=== PATIENT | male | born 1945 | race Caucasian/White ===

== ENCOUNTER 2017-01-28 17:33 | Outpatient (CLI) | payer MEDICARE, OTHER | END 2017-01-28 17:34 | disposition EMS.NT | DX: R26.89 Other abnormalities of gait and mobility (principal); W10.2XXA Fall (on)(from) incline, initial encounter; Y93.01 Activity, walking, marching and hiking; Y92.008 Other place in unspecified non-institutional (private) residence as the place of occurrence of the external cause ==

== ENCOUNTER 2017-02-06 14:20 | Emergency (ER) | payer MEDICARE, OTHER ==
[2017-02-06 14:52] VITALS: BP 115/76
[2017-02-06] MEDS ORDERED: IPRATROPIUM/ALBUTEROL 3 ML NEB INH STA (15:29)
[2017-02-06] MEDS ORDERED: DEXAMETHASONE 10 MG/ML VIAL PO STA (15:29)
--- NOTE | 2017-02-06 15:32 | ED Physician Documentation ---
PD HPI DYSPNEA - Stated complaint Stated Complaint: SOA - Chief complaint Chief Complaint: Resp - History obtained from History obtained from: Patient, Family - History of Present Illness Timing - onset: How many days ago (3-4) Timing - onset during: Rest Timing - duration: Days (3-4) Timing - details: Gradual onset, Still present Inciting event(s): URI Improved by: Rest Worsened by: Exertion, Coughing Associated symptoms: Cough, Wheezing Similar symptoms before: No diagnosis Recently seen: Not recently seen - Additional information Additional information: 71-year-old male with a history of alcoholism has developed some wheezing and a cough productive of some phlegm. He does have some drainage down the back of his throat and he has not used his nebulizer machine he has not been able to find the medication for his nebulizer machine. He is uncertain if he is ever used an inhaler. He states that he still is drinking 2 24 ounce beers per day. His indicates that heGets up at 4:30 in the morning goes to the store to get his beer. Review of Systems Constitutional: denies: Fever, Chills, Myalgias Eyes: denies: Decreased vision Ears: denies: Ear pain Nose: reports: Rhinorrhea / runny nose, Congestion Throat: denies: Sore throat Cardiac: denies: Chest pain / pressure, Palpitations Respiratory: reports: Dyspnea, Cough, Wheezing GI: denies: Abdominal Pain, Nausea, Vomiting : denies: Dysuria PD PAST MEDICAL HISTORY - Past Medical History Cardiovascular: Deep vein thrombosis Respiratory: None Neuro: None Endocrine/Autoimmune: None GI: None : None HEENT: None Psych: Anxiety Musculoskeletal: None, Other Derm: None - Past Surgical History Past Surgical History: Yes General: Appendectomy Ortho: Hip replacement, Other - Present Medications Home Medications: Ambulatory Orders Medication Instructions Recorded Confirmed Albuterol Sulf [Ventolin Hfa 1 - 2 puffs INH Q4HR PRN #1 inhaler 02/06/17 Inhaler] Azithromycin [Zithromax] 250 mg PO DAILY #6 tablet 02/06/17 Benzonatate [Tessalon] 100 - 200 mg PO TID PRN #20 capsule 02/06/17 - Allergies Allergies/Adverse Reactions: Allergies Allergy/AdvReac Type Severity Reaction Status Date / Time No Known Drug Allergies Allergy Verified 02/06/17 14:25 - Social History Does the pt smoke?: Yes Smoking Status: Current every day smoker Does the pt drink ETOH?: Yes Does the pt have substance abuse?: No - Immunizations Immunizations are current?: Yes - POLST Patient has POLST: No PD ED PE NORMAL - Vitals Vital signs reviewed: Yes (normal ) - General General: No acute distress, Well developed/nourished - HEENT HEENT: Atraumatic, PERRL, EOMI, Other (mild inflamation of the right TM and not the left. ) - Neck Neck: Supple, no meningeal sign, No bony TTP - Cardiac Cardiac: RRR, No murmur - Respiratory Respiratory: No respiratory distress, Other (scattered wheezes throughout with focal rhonchi in the left base. ) - Abdomen Abdomen: Soft, Non tender - Back Back: No CVA TTP, No spinal TTP - Derm Derm: Normal color, Warm and dry, No rash - Extremities Extremities: No deformity, No edema - Neuro Neuro: No motor deficit, No sensory deficit - Psych Psych: Normal mood, Normal affect Results - Vitals Vitals: Vital Signs - 24 hr 02/06/17 14:23 Temperature 36.4 C L Heart Rate 88 Respiratory 20 Rate Blood Pressure 115/76 O2 Saturation 92 Oxygen O2 Source Room air - Rads (name of study) 2 view chest Radiology: Prelim report reviewed (Impression: 1. No acute infiltrates.2. Flattened hemidiaphragms with diffuse interstitial prominence suggesting COPD.3. L1 compression fracture noted.), EMP read indepedently, See rad report PD MEDICAL DECISION MAKING - ED course Complexity details: reviewed old records, reviewed results, re-evaluated patient , considered differential, d/w patient, d/w family ED course: 71-year-old alcoholic male with a history of a recent URI has some reactive airway disease and here in the emergency department he is given some dexamethasone and a DuoNeb treatment with some improvement and he is taught the use of an inhaler. Chest x-ray is without evidence of infiltrate. He does appear to have a mild otitis on the right side. Departure - Departure Disposition: 01 Home, Self Care Clinical Impression: Mild chronic obstructive pulmonary disease Otitis media Qualifiers: Otitis media type: suppurative Laterality: right Chronicity: acute Recurrence: not specified as recurrent Spontaneous tympanic membrane rupture: without spontaneous rupture Qualified Code(s): H66.001 - Acute suppurative otitis media without spontaneous rupture of ear drum, right ear Instructions: ED COPD Flare, ED Otitis Media Acute Adult Follow-Up: Anna Quigley DO [Provider Admit Priv/Credential] - Prescriptions: Albuterol Sulf [Ventolin Hfa Inhaler] 1 - 2 puffs INH Q4HR PRN #1 inhaler PRN Reason: Shortness Of Air/Wheezing Benzonatate [Tessalon] 100 - 200 mg PO TID PRN #20 capsule PRN Reason: Cough Azithromycin [Zithromax] 250 mg PO DAILY #6 tablet
[2017-02-06] MEDS ORDERED: DEXAMETHASONE 10 MG/ML VIAL ONE (15:37)
--- NOTE | 2017-02-06 16:09 | XRAY Preliminary Report ---
Exam: XR Chest 2 View PA/LAT IMPRESSION: 1. No acute infiltrates. 2. Flattened hemidiaphragms with diffuse interstitial prominence suggesting COPD. 3. L1 compression fracture noted. [facility] SITE ID: [id number]
--- NOTE | 2017-02-06 16:12 | XRAY Report ---
EXAM: CHEST RADIOGRAPHY EXAM DATE: 02/06/2017 03:43 PM. CLINICAL HISTORY: Left base rhonchi and wheezing. COMPARISON: None. TECHNIQUE: 2 views. FINDINGS: Lungs/Pleura: Flattened hemidiaphragms with mild diffuse interstitial prominence. No focal opacities evident. No pleural effusion. No pneumothorax. Mediastinum: Heart and mediastinal contours are unremarkable. Other: L1 compression fracture noted. Advanced degenerative changes of the right shoulder evident. IMPRESSION: 1. No acute infiltrates. 2. Flattened hemidiaphragms with diffuse interstitial prominence suggesting COPD. 3. L1 compression fracture noted. [facility] Referring Provider Line: [phone] SITE ID: [id number]
[2017-02-06] MEDS ORDERED: IPRATROPIUM/ALBUTEROL 3 ML NEB INH ONE (16:13)
== END 2017-02-06 17:14 | disposition home or self-care (01) ==
LOC: ED 14:20
DX: J44.9 Chronic obstructive pulmonary disease, unspecified (principal); H66.001 Acute suppurative otitis media without spontaneous rupture of ear drum, right ear; Z86.718 Personal history of other venous thrombosis and embolism; F17.200 Nicotine dependence, unspecified, uncomplicated
CPT/HCPCS: 71020; 94640; 99282; 99283; J7620

== ENCOUNTER 2017-02-11 08:14 | Emergency (ER) | payer MEDICARE, OTHER ==
[2017-02-11 08:24] VITALS: BP 134/79
[2017-02-11 09:39] LABS: BILIRUBIN,URINE NEGATIVE (NEGATIVE); PH,URINE 5.5 PH (5.0-7.5)
[2017-02-11 09:43] LABS: UA CHARGE (STRIP ONLY) YES; UR CULTURE IF IND NOT INDICATED
--- NOTE | 2017-02-11 09:57 | ED Physician Documentation ---
History of Present Illness - Stated complaint Stated Complaint: MALE - Chief complaint Chief Complaint: General - Additonal information Additional information: hx from pt 71 male to ER with urinary freq X 3 d usualy urinated 3 X per night, now 5 X per night no change in fluids caffeine meds etc no fever chills abd pain flank pain pain dysuria or hematuria pt very impatient to leave, he is caregiver for with alzheimers Review of Systems Constitutional: denies: Fever, Chills GI: denies: Abdominal Pain : reports: Frequency. denies: Dysuria, Hematuria Musculoskeletal: denies: Back pain Immunocompromised: denies: Immunocompromised PD PAST MEDICAL HISTORY - Past Medical History Cardiovascular: Deep vein thrombosis Respiratory: None Neuro: None Endocrine/Autoimmune: None GI: None : None HEENT: None Psych: Anxiety Musculoskeletal: None, Other Derm: None - Past Surgical History Past Surgical History: Yes General: Appendectomy Ortho: Hip replacement, Other - Present Medications Home Medications: Ambulatory Orders Medication Instructions Recorded Confirmed Albuterol Sulf [Ventolin Hfa 1 - 2 puffs INH Q4HR PRN #1 inhaler 02/06/17 Inhaler] Azithromycin [Zithromax] 250 mg PO DAILY #6 tablet 02/06/17 Benzonatate [Tessalon] 100 - 200 mg PO TID PRN #20 capsule 02/06/17 - Allergies Allergies/Adverse Reactions: Allergies Allergy/AdvReac Type Severity Reaction Status Date / Time No Known Drug Allergies Allergy Verified 02/06/17 14:25 - Social History Does the pt smoke?: Yes Smoking Status: Current every day smoker Does the pt drink ETOH?: Yes Does the pt have substance abuse?: No - Immunizations Immunizations are current?: Yes - POLST Patient has POLST: No PD ED PE NORMAL - Vitals Vital signs reviewed: Yes - Cardiac Cardiac: RRR - Respiratory Respiratory: No respiratory distress - Abdomen Abdomen: Soft, Non tender - Back Back: No CVA TTP - Neuro Neuro: Alert and oriented X 3 Results - Vitals Vitals: Vital Signs - 24 hr 02/11/17 08:21 Temperature 36.9 C Heart Rate 88 Respiratory 16 Rate Blood Pressure 134/79 H O2 Saturation 98 Oxygen O2 Source Room air - Labs Labs: Laboratory Tests 02/11/17 09:05 Urine Color YELLOW Urine Clarity CLEAR Urine pH 5.5 Ur Specific [place] <=1.005 Urine Protein NEGATIVE Urine Glucose (UA) NEGATIVE Urine Ketones NEGATIVE Urine Occult Blood NEGATIVE Urine Nitrite NEGATIVE Urine Bilirubin NEGATIVE Urine Urobilinogen 0.2 (NORMAL) Ur Leukocyte Esterase NEGATIVE Ur Microscopic Review NOT INDICATED Urine Culture Comments NOT INDICATED Departure - Departure Disposition: 01 Home, Self Care Clinical Impression: Urinary frequency Condition: Good Follow-Up: Al Martinez MD [Physician No Access] - Comments: The urine test was fine. No infection, no blood, no glucose The problem may be an enlarged prostate and I suggest you follow up with a urologist
== END 2017-02-11 09:58 | disposition home or self-care (01) ==
LOC: ED 08:14
DX: R35.0 Frequency of micturition (principal); Z86.718 Personal history of other venous thrombosis and embolism; F17.200 Nicotine dependence, unspecified, uncomplicated
CPT/HCPCS: 81001; 81003; 87086; 99282; 99283

== ENCOUNTER 2017-02-27 08:59 | Outpatient (CLI) | payer MEDICARE, OTHER ==
--- NOTE | 2017-02-27 13:22 | DEXA Report ---
DEXA SCAN: 02/27/2017 CLINICAL INDICATION: Fracture. TECHNIQUE: Dual energy x-ray absorptiometry (DXA) was performed on a WOMN system. Regions measured are the AP spine, femoral neck, and, if needed, forearm. COMPARISON: None. In accordance with the International Society for Clinical Densitometry (ISCD) guidelines, data from previous exams may be reanalyzed using current recommendations and techniques. This is done to allow a more accurate basis for comparison with the current study. FINDINGS: The data for the lumbar spine is as follows: REGION BMD (g/cm/cm) T-SCORE Z-SCORE 1.388 2.1 4.0 L2 1.247 0.4 2.2 L3 1.477 2.3 4.1 L4 1.368 1.4 3.2 TOTAL 1.367 1.4 3.2 NOTE: All evaluable vertebrae are used for classification. The data for the hip is as follows: REGION BMD (g/cm/cm) T-SCORE Z-SCORE Neck 0.758 -2.0 -0.1 TOTAL 0.824 -1.5 0.3 NOTE: The femoral neck or total proximal femur, whichever is lowest, is used for classification. IMPRESSION: THE WHO CLASSIFICATION BASED ON THE INTERNATIONAL REFERENCE STANDARD IS OSTEOPENIA. THE FRACTURE RISK IS INCREASED. RECOMMENDATION: Patients with diagnosis of osteoporosis or osteopenia should have regular bone mineral density assessment. For those eligible for Medicare, routine testing is allowed once every 2 years. Testing frequency can be increased for patients who have rapidly progressing disease or for those who are receiving medical therapy to restore bone mass. COMMENT: World Health Organization (WHO) definitions for osteoporosis and osteopenia: NORMAL BMD: T-score at -1.0 or higher, fracture risk is low. OSTEOPENIA BMD: T-score between -1.0 and -2.5, fracture risk is increased. OSTEOPOROSIS BMD: T-score at -2.5 or lower, fracture risk high. National Osteoporosis Foundation recommends: 1. Obtain adequate dietary calcium (at least 1200 mg per day) and vitamin D (400 -800 international units per day). 2. Participate, as appropriate, in regular weightbearing and muscle- strengthening exercise. 3. Avoid tobacco use and reduce alcohol and caffeine intake. 4. For more detailed information see the website at www.NOF.org. MTDD
== END 2017-02-27 09:00 | disposition home or self-care (01) ==
LOC: DI 08:59
PROVIDERS: ATTEND Family Medicine
DX: S32.018A Other fracture of first lumbar vertebra, initial encounter for closed fracture (principal); M85.80 Other specified disorders of bone density and structure, unspecified site
CPT/HCPCS: 77080

== ENCOUNTER 2017-02-28 08:59 | Outpatient (CLI) | payer MEDICARE, OTHER ==
--- NOTE | 2017-02-28 15:56 | MRI Report ---
EXAM: MRI LUMBAR SPINE WITHOUT CONTRAST EXAM DATE: 02/28/2017 09:25 a.m. CLINICAL HISTORY: Patient fell months ago. Pain recently. COMPARISON: X-ray 02/20/2017. TECHNIQUE: Multiplanar, multisequence T1-weighted and fluid-sensitive sequences of the lumbar spine f rom T12 to S1 without contrast. Other: None. FINDINGS: Spinal Cord: The conus terminates at L1-L2. No signal abnormality in the visualized spinal cord. Alignment: There is flattening of the lumbar lordosis. Bone Marrow: Five [id number] lumbar vertebral bodies are assumed. There is a fracture of the sup erior and inferior endplates of L1 with marrow edema, and greater than 50% loss of vertebral body hei ght. The findings are consistent with a subacute fracture. There is mild retropulsion of fragments na rrowing the spinal canal by less than one-third of its normal anteroposterior diameter. Disk Levels/Facets: L1-L2: Mild facet joint osteoarthritis. Canal and foramina are normal. L2-L3: Unremarkable. L3-L4: Mild bilateral facet joint osteoarthritis. Canal and foramina are patent. L4-L5: Disk desiccation and loss of disk height. Broad-based posterior disk bulge with mild bilateral facet joint osteoarthritis causing mild canal narrowing. Mild bilateral foraminal narrowing. L5-S1: Mild bilateral facet joint osteophyte arthritis. Very small central disk protrusion. Mild bila teral foraminal narrowing. Osteophytes contact the left L5 nerve root within the neural foramen. Musculature: Normal. No edema or fatty atrophy. Other: The visualized pelvic cavity is unremarkable. IMPRESSION: 1. Mild spondylotic change. 2. Fracture of the body of L1 with greater than 50% loss of vertebral body height and moderate marrow edema suggestive of a subacute fracture. Retropulsed fragments cause mild canal narrowing 3. Mild degenerative change with mild foraminal narrowing at L4-L5 and L5-S1. The left L5 nerve root appears to be contacted by an osteophyte within the foramen. Comment: The following findings are so common in adults without low back pain that while we report th eir presence, they must be interpreted with caution and in the context of the clinical situation. (Re toby Zhang et al, Spine 2001) Prevalence of findings in patients without low back pain: Disk degeneration (any evidence): 92% Disk desiccation/T2 signal loss: 83% Disk height loss: 56% Disk bulge: 64% Disk protrusion: 32% Annular tear/high intensity zone: 38% [facility] Referring Provider Line: [phone] SITE ID: [id number]
== END 2017-02-28 09:00 | disposition home or self-care (01) ==
LOC: DI 08:59
PROVIDERS: ATTEND Family Medicine
DX: S32.018A Other fracture of first lumbar vertebra, initial encounter for closed fracture (principal); M51.37 Other intervertebral disc degeneration, lumbosacral region
CPT/HCPCS: 72148

== ENCOUNTER 2017-04-01 13:23 | Outpatient (CLI) | payer MEDICARE, OTHER ==
[2017-04-01 20:03] LABS: BASOPHILS # (AUTO) 0.2 10^3/uL (0.0-0.1); BASOPHILS % (AUTO) 2.8 %; EOSINOPHILS # (AUTO) 0.2 10^3/uL (0.0-0.7); EOSINOPHILS % (AUTO) 2.2 %; HCT - HEMATOCRIT 41.4 % (42.0-52.0); HGB - HEMOGLOBIN 14.2 g/dL (14.0-18.0); LYMPHOCYTES # (AUTO) 1.5 10^3/uL (1.5-3.5); LYMPHOCYTES % (AUTO) 20.5 %; MEAN CORPUSCULAR HEMOGLOBIN 32.6 pg (27.0-31.0); MEAN CORPUSCULAR HGB CONC 34.2 g/dL (32.0-36.0); MEAN CORPUSCULAR VOLUME 95.6 fL (80.0-94.0); MEAN PLATELET VOLUME 10.5 fL (7.4-11.4); MONOCYTES # (AUTO) 0.6 10^3/uL (0.0-1.0); MONOCYTES % (AUTO) 8.5 %; NEUTROPHILS # (AUTO) 4.9 10^3/uL (1.5-6.6); NUCLEATED RED BLOOD CELLS AUTO 0.3 /100WBC; RED BLOOD COUNT 4.34 10^6/uL (4.70-6.10); RED CELL DISTRIBUTION WIDTH 12.8 % (12.0-15.0); UNCORRECTED WHITE BLOOD COUNT 7.4 x10^3/uL; WHITE BLOOD COUNT 7.4 x10^3/uL (4.8-10.8)
[2017-04-01 20:18] LABS: ALBUMIN/GLOBULIN RATIO 1.1 (1.0-2.2); BUN - BLOOD UREA NITROGEN 20 mg/dL (6-20); CALCIUM 8.9 mg/dL (8.5-10.3); CARBON DIOXIDE - CO2 25 mmol/L (21-32); CHLORIDE 106 mmol/L (101-111); CHOL/HDL RATIO 4.3 (<5.0); CHOLESTEROL 129 mg/dL; GFR - MDRD 73 (>89); GLUCOSE 97 mg/dL (70-100); HDL CHOLESTEROL 30 mg/dL; LDL/HDL RATIO 2.5 (<3.6); POTASSIUM 4.3 mmol/L (3.5-5.0); SODIUM 137 mmol/L (135-145); TOTAL PROTEIN 6.8 g/dL (6.7-8.2); TRIGLYCERIDES 121 mg/dL; VLDL CHOLESTEROL 24 mg/dL
== END 2017-04-01 13:24 | disposition home or self-care (01) ==
LOC: LAB.WCP 13:23
PROVIDERS: ATTEND Family Medicine
DX: R74.8 Abnormal levels of other serum enzymes (principal); I73.9 Peripheral vascular disease, unspecified; M85.80 Other specified disorders of bone density and structure, unspecified site; I10 Essential (primary) hypertension
CPT/HCPCS: 36415; 80053; 80061; 85025

== ENCOUNTER 2018-03-24 11:45 | Outpatient (CLI) | payer MEDICARE, OTHER ==
[2018-03-24 18:44] LABS: HGB - HEMOGLOBIN 14.1 g/dL (14.0-18.0); MEAN CORPUSCULAR HEMOGLOBIN 33.5 pg (27.0-31.0); MEAN CORPUSCULAR HGB CONC 34.6 g/dL (32.0-36.0); MEAN CORPUSCULAR VOLUME 96.8 fL (80.0-94.0); MEAN PLATELET VOLUME 9.5 fL (7.4-11.4); RED BLOOD COUNT 4.21 10^6/uL (4.70-6.10); RED CELL DISTRIBUTION WIDTH 12.9 % (12.0-15.0); WHITE BLOOD COUNT 6.4 x10^3/uL (4.8-10.8)
[2018-03-24 19:05] LABS: CRP - C-REACTIVE PROTEIN 1.6 mg/dL (0-1.0); URIC ACID 6.2 mg/dL (2.6-7.2)
[2018-03-24 19:29] LABS: RHEUMATOID FACTOR POSITIVE (Negative)
== END 2018-03-24 11:46 | disposition home or self-care (01) ==
LOC: LAB.WCP 11:45
PROVIDERS: ATTEND Family Medicine
DX: M79.642 Pain in left hand (principal); M79.641 Pain in right hand
CPT/HCPCS: 36415; 84550; 85027; 85651; 86140; 86200; 86430

== ENCOUNTER 2018-03-24 13:07 | Outpatient (CLI) | payer MEDICARE, OTHER ==
--- NOTE | 2018-03-24 16:29 | XRAY Report ---
Reason: HAND PAIN,LEFT, HAND PAIN,RIGHT Procedure Date: 03/24/2018 Accession Number: [id number] / [id number] Procedure: XR - Hand 3 View BILAT CPT Code: FULL RESULT: EXAMS: 1. Right Hand Radiography. 2. Left Hand Radiography. EXAM DATE: 03/24/2018 01:38 PM. CLINICAL HISTORY: Hand pain, left, hand pain, right. COMPARISON: None. TECHNIQUE: 3 views each hand. FINDINGS: Qualitatively bones are osteopenic in both hands. 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 No acute fracture or dislocation. Left: Old radial head fracture and moderate degenerative changes of the first and fifth carpometacarpal joints. No acute fracture or dislocation. IMPRESSION: Nonunited right scaphoid fracture. [facility]
== END 2018-03-24 13:08 | disposition home or self-care (01) ==
LOC: DI 13:07
PROVIDERS: ATTEND Family Medicine
DX: S62.001K Unspecified fracture of navicular [scaphoid] bone of right wrist, subsequent encounter for fracture with nonunion (principal); M79.642 Pain in left hand
CPT/HCPCS: 36415; 84550; 85027; 85651; 86140; 86200; 86430

== ENCOUNTER 2018-08-06 13:52 | Outpatient (CLI) | payer MEDICARE, OTHER | END 2018-08-06 13:53 | disposition EMS.NT | LOC: EMS 13:52 | PROVIDERS: ATTEND Surgery | DX: R42 Dizziness and giddiness (principal) ==

== ENCOUNTER 2019-02-19 21:20 | Outpatient (CLI) | payer MEDICARE, OTHER | END 2019-02-19 21:21 | disposition critical access hospital (66) | LOC: EMS 21:20 | PROVIDERS: ATTEND Surgery | DX: R53.1 Weakness (principal); R41.0 Disorientation, unspecified; R29.6 Repeated falls | CPT/HCPCS: A0425; A0429 ==

== ENCOUNTER 2019-02-19 21:36 | Emergency (ER) | payer MEDICARE, OTHER ==
[2019-02-19 22:19] LABS: BASOPHILS % (AUTO) 0.5 %; EOSINOPHILS # (AUTO) 0.3 10^3/uL (0.0-0.7); EOSINOPHILS % (AUTO) 3.5 %; HGB - HEMOGLOBIN 13.7 g/dL (14.0-18.0); LYMPHOCYTES # (AUTO) 2.4 10^3/uL (1.5-3.5); LYMPHOCYTES % (AUTO) 32.3 %; MEAN CORPUSCULAR HEMOGLOBIN 33.5 pg (27.0-31.0); MEAN CORPUSCULAR HGB CONC 34.9 g/dL (32.0-36.0); MEAN CORPUSCULAR VOLUME 96.1 fL (80.0-94.0); MEAN PLATELET VOLUME 10.7 fL (7.4-11.4); MONOCYTES # (AUTO) 0.7 10^3/uL (0.0-1.0); MONOCYTES % (AUTO) 8.9 %; NEUTROPHILS % (AUTO) 54.3 %; PLT - PLATELET COUNT 189 10^3/uL (130-450); RED BLOOD COUNT 4.09 10^6/uL (4.70-6.10); RED CELL DISTRIBUTION WIDTH 13.2 % (12.0-15.0); WHITE BLOOD COUNT 7.4 x10^3/uL (4.8-10.8)
[2019-02-19 22:33] LABS: ALBUMIN 3.3 g/dL (3.2-5.5); ALBUMIN/GLOBULIN RATIO 1.1 (1.0-2.2); BILIRUBIN,TOTAL 0.9 mg/dL (0.2-1.0); CALCIUM 8.2 mg/dL (8.5-10.3); CREATININE 0.9 mg/dL (0.6-1.2); TOTAL PROTEIN 6.2 g/dL (6.7-8.2)
--- NOTE | 2019-02-20 00:19 | ED Physician Documentation ---
PD HPI ALTERED MENTAL STATUS - Stated complaint Stated Complaint: AMS - Chief complaint Chief Complaint: General - History obtained from History obtained from: Patient, EMS - History of Present Illness Timing - onset: Today Quality / character: Less responsive Associated symptoms: No: Fever, Headache, Dyspnea, Cough, NVD, Urinary sx, General weakness, Focal weakness Contributing factors: Intoxicated [place] status: Alert and oriented X 3, Ambulatory, Independent (patient also drives) Recently seen: Not recently seen - Additional information Additional information: BIBA, family called because patient fell in driveway while walking with walker Review of Systems Constitutional: denies: Fever Cardiac: reports: Reviewed and negative Respiratory: reports: Reviewed and negative GI: reports: Reviewed and negative : reports: Incontinent (not new). denies: Dysuria, Frequency Musculoskeletal: reports: Reviewed and negative Neurologic: reports: Reviewed and negative PD PAST MEDICAL HISTORY - Past Medical History Past Medical History: Yes Cardiovascular: Deep vein thrombosis Respiratory: None Endocrine/Autoimmune: None GI: None : None HEENT: None Psych: Anxiety Musculoskeletal: None, Other Derm: None - Past Surgical History Past Surgical History: Yes General: Appendectomy Ortho: Hip replacement, Other - Present Medications Home Medications: Ambulatory Orders Medication Instructions Recorded Confirmed Albuterol Sulf [Ventolin Hfa 1 - 2 puffs INH Q4HR PRN #1 inhaler 02/06/17 Inhaler] Azithromycin [Zithromax] 250 mg PO DAILY #6 tablet 02/06/17 Benzonatate [Tessalon] 100 - 200 mg PO TID PRN #20 capsule 02/06/17 - Allergies Allergies/Adverse Reactions: Allergies Allergy/AdvReac Type Severity Reaction Status Date / Time No Known Drug Allergies Allergy Verified 02/06/17 14:25 - Social History Does the pt smoke?: Yes Smoking Status: Current every day smoker Does the pt drink ETOH?: Yes Does the pt have substance abuse?: No - Immunizations Immunizations are current?: Yes - POLST Patient has POLST: No PD ED PE NORMAL - Vitals Vital signs reviewed: Yes - General General: Alert and oriented X 3, No acute distress, Well developed/nourished - HEENT HEENT: Atraumatic, PERRL, EOMI, Moist mucous membranes - Neck Neck: Supple, no meningeal sign, No bony TTP - Cardiac Cardiac: RRR, No murmur - Respiratory Respiratory: No respiratory distress, Clear bilaterally - Abdomen Abdomen: Soft, Non tender - Back Back: No spinal TTP - Derm Derm: Normal color, Warm and dry, No rash - Extremities Extremities: No deformity, No tenderness to palpate, Normal ROM s pain, No edema, Other (left BKA) - Neuro Neuro: Alert and oriented X 3, feather shaper 2-12 intact, No motor deficit, No sensory deficit Eye Opening: To Voice Motor: Obeys Commands Verbal: Oriented GCS Score: 14 Results - Vitals Vitals: Vital Signs - 24 hr 02/19/19 02/19/19 02/19/19 21:39 21:58 23:55 Temperature 36.2 C L 36.2 C L Heart Rate 67 67 68 Respiratory 18 18 16 Rate Blood Pressure 107/61 107/61 114/55 L O2 Saturation 100 100 98 02/20/19 02/20/19 02/20/19 02:13 03:00 04:15 Temperature Heart Rate 68 64 64 Respiratory 13 12 18 Rate Blood Pressure 100/55 L 131/64 H 110/68 O2 Saturation 93 100 99 02/20/19 06:07 Temperature Heart Rate 64 Respiratory 24 Rate Blood Pressure 123/65 O2 Saturation 97 Oxygen O2 Source Room air - Labs Labs: Laboratory Tests 02/19/19 02/19/19 02/19/19 22:15 22:15 22:15 WBC 7.4 RBC 4.09 L Hgb 13.7 L Hct 39.3 L MCV 96.1 H MCH 33.5 H MCHC 34.9 RDW 13.2 Plt Count 189 MPV 10.7 Neut # (Auto) 4.0 Lymph # (Auto) 2.4 [place] # (Auto) 0.7 Eos # (Auto) 0.3 Baso # (Auto) 0.0 Absolute Nucleated RBC 0.00 Nucleated RBC % 0.0 Sodium 134 L Potassium 4.1 Chloride 100 L Carbon Dioxide 21 Anion Gap 13.0 BUN 10 Creatinine 0.9 Estimated GFR (MDRD) 82 L Glucose 90 Calcium 8.2 L Total Bilirubin 0.9 AST 31 ALT 15 Alkaline Phosphatase 98 Total Protein 6.2 L Albumin 3.3 Globulin 2.9 Albumin/Globulin Ratio 1.1 Lipase 58 H Urine Color Urine Clarity Urine pH Ur Specific [place] Urine Protein Urine Glucose (UA) Urine Ketones Urine Occult Blood Urine Nitrite Urine Bilirubin Urine Urobilinogen Ur Leukocyte Esterase Ur Microscopic Review Urine Culture Comments Ethyl Alcohol 274.6 02/20/19 02:06 WBC RBC Hgb Hct MCV MCH MCHC RDW Plt Count MPV Neut # (Auto) Lymph # (Auto) [place] # (Auto) Eos # (Auto) Baso # (Auto) Absolute Nucleated RBC Nucleated RBC % Sodium Potassium Chloride Carbon Dioxide Anion Gap BUN Creatinine Estimated GFR (MDRD) Glucose Calcium Total Bilirubin AST ALT Alkaline Phosphatase Total Protein Albumin Globulin Albumin/Globulin Ratio Lipase Urine Color YELLOW Urine Clarity CLEAR Urine pH 5.0 Ur Specific [place] 1.010 Urine Protein NEGATIVE Urine Glucose (UA) NEGATIVE Urine Ketones NEGATIVE Urine Occult Blood NEGATIVE Urine Nitrite NEGATIVE Urine Bilirubin NEGATIVE Urine Urobilinogen 0.2 (NORMAL) Ur Leukocyte Esterase NEGATIVE Ur Microscopic Review NOT INDICATED Urine Culture Comments NOT INDICATED Ethyl Alcohol PD MEDICAL DECISION MAKING - ED course Complexity details: reviewed results, re-evaluated patient, considered differ ential, d/w patient ED course: Sleeping when I walk in room, awakens to gentle tactile with verbal. He takes a moment to get oriented: after looking around, he recognizes he is in "a hospital". He is conversant with clear speech and denies any c/o. He does not recall why he is in the ED. Alcohol level is over 170. He is pleasant and agreeable and thus agrees with staying in ED until morning when he can be reevaluated. Per medics, his room was filthy with feces on floor and in his bed despite the rest of the house being in good, clean condition. Reevaluated in the AM, and he is AAOx3. He recalls falling last night, says he tripped when using his walker but again denies any injury or pain. He confirms the state of the room in which he lives. He says it is his fault, that he simply hasn't been keeping up with cleaning. He also says he does not get along well with his [id number] and that his mjvgmmgd-dr-gte takes care of his demented and herself but not him. He acknowledges that he is able-bodied, however (eg - he still drives a car). He repeatedly tells me he feels completely safe at home and is comfortable returning home. Departure - Departure Disposition: 01 Home, Self Care Clinical Impression: Alcohol intoxication Qualifiers: Complication of substance-induced condition: uncomplicated Qualified Code(s): F10.920 - Alcohol use, unspecified with intoxication, uncomplicated Fall Qualifiers: Encounter type: initial encounter Qualified Code(s): W19.XXXA - Unspecified fall, initial encounter Condition: Good Instructions: ED Alcohol Intoxication, ED Fall Uncertain Cause Discharge Date/Time: 02/20/19 08:25
[2019-02-20 02:27] LABS: BILIRUBIN,URINE NEGATIVE (NEGATIVE); GLUCOSE, URINE (UA) NEGATIVE (NEGATIVE); KETONES,URINE (UA) NEGATIVE (NEGATIVE); LEUKOCYTE ESTERASE, URINE NEGATIVE (NEGATIVE); NITRITE,URINE NEGATIVE (NEGATIVE); OCCULT BLOOD,URINE NEGATIVE (NEGATIVE); PROTEIN,URINE NEGATIVE (NEGATIVE); UROBILINOGEN,URINE 0.2 (NORMAL) E.U./dL (NORMAL)
[2019-02-20 02:30] LABS: CLARITY,URINE CLEAR (CLEAR)
[2019-02-20 06:08] VITALS: BP 123/65
== END 2019-02-20 08:25 | disposition home or self-care (01) ==
LOC: EDUNIT# → ED 21:36
DX: F10.920 Alcohol use, unspecified with intoxication, uncomplicated (principal); Y90.6 Blood alcohol level of 120-199 mg/100 ml; W01.0XXA Fall on same level from slipping, tripping and stumbling without subsequent striking against object, initial encounter; Y93.01 Activity, walking, marching and hiking; Y92.008 Other place in unspecified non-institutional (private) residence as the place of occurrence of the external cause; Z89.512 Acquired absence of left leg below knee; F17.200 Nicotine dependence, unspecified, uncomplicated
CPT/HCPCS: 36415; 80053; 80320; 81001; 81003; 83690; 85025; 87086; 99283; 99284

== ENCOUNTER 2019-09-17 02:01 | Outpatient (CLI) | payer MEDICARE, OTHER | END 2019-09-17 02:02 | disposition EMS.NT | LOC: EMS 02:01 | PROVIDERS: ATTEND Surgery | DX: Z03.89 Encounter for observation for other suspected diseases and conditions ruled out (principal) ==

== ENCOUNTER 2019-10-05 10:04 | Outpatient (CLI) | payer MEDICARE, OTHER | END 2019-10-05 10:05 | disposition critical access hospital (66) | LOC: EMS 10:04 | PROVIDERS: ATTEND Surgery | DX: M79.651 Pain in right thigh (principal); R21 Rash and other nonspecific skin eruption; M54.9 Dorsalgia, unspecified | CPT/HCPCS: A0425; A0429 ==

== ENCOUNTER 2019-10-05 10:20 | Emergency (ER) | payer MEDICARE, OTHER ==
[2019-10-05] MEDS ORDERED: SULFAMETH/TRIMETH DS 800/160 MG TABLET PO STA (12:08)
[2019-10-05] MEDS ORDERED: SODIUM CHLORIDE 0.9% 1,000 ML IV ONE (12:08)
--- NOTE | 2019-10-05 12:11 | ED Physician Documentation ---
History of Present Illness - Stated complaint Stated Complaint: R LEG PX - Chief complaint Chief Complaint: General - History obtained from History obtained from: Patient, EMS - Additonal information Additional information: Patient was sent to the emergency department via EMS by family after they checked on him today. The patient denies complaints, other than a "rash" on his right leg. This is what the patient was sent in for by family, apparently. The patient has been seen multiple times in the emergency department, as has his , for concerns that they are not caring for themselves well at home. However, the patient has steadfastly refused to be moved out of his home. They have been seen by social work and Adult Protective Services multiple times, and currently, the patient's is at a care facility for respite for several days.The patient states that he has no pain in his chest or abdomen. No shortness of breath, fevers, cough, dysuria, or back pain. He states he would just like to go back home. He states he does not know why he is here and he did not want to come to the hospital. Patient is currently his own guardian. Review of Systems Ten Systems: 10 systems reviewed and negative Constitutional: reports: Reviewed and negative Eyes: reports: Reviewed and negative Ears: reports: Reviewed and negative Nose: reports: Reviewed and negative Throat: reports: Reviewed and negative Cardiac: reports: Reviewed and negative Respiratory: reports: Reviewed and negative GI: reports: Reviewed and negative : reports: Reviewed and negative Skin: reports: Lesions Musculoskeletal: reports: Reviewed and negative Neurologic: reports: Reviewed and negative Psychiatric: reports: Reviewed and negative Endocrine: reports: Reviewed and negative Immunocompromised: reports: Reviewed and negative PD PAST MEDICAL HISTORY - Past Medical History Past Medical History: Yes Cardiovascular: Deep vein thrombosis Respiratory: None Endocrine/Autoimmune: None GI: None : None HEENT: None Psych: Anxiety Musculoskeletal: Other Derm: None - Past Surgical History Past Surgical History: Yes General: Appendectomy Ortho: Hip replacement, Other - Present Medications Home Medications: Ambulatory Orders Medication Instructions Recorded Confirmed Albuterol Sulf [Ventolin Hfa 1 - 2 puffs INH Q4HR PRN #1 inhaler 02/06/17 Inhaler] Azithromycin [Zithromax] 250 mg PO DAILY #6 tablet 02/06/17 Benzonatate [Tessalon] 100 - 200 mg PO TID PRN #20 capsule 02/06/17 Sulfamethox/Trimeth 800/160 1 each PO BID #14 tablet 10/05/19 [Bactrim Ds 800/160] - Allergies Allergies/Adverse Reactions: Allergies Allergy/AdvReac Type Severity Reaction Status Date / Time No Known Drug Allergies Allergy Verified 02/06/17 14:25 - Social History Does the pt smoke?: Yes Smoking Status: Current every day smoker Does the pt drink ETOH?: Yes Does the pt have substance abuse?: No - Immunizations Immunizations are current?: Yes - POLST Patient has POLST: No PD ED PE NORMAL - Vitals Vital signs reviewed: Yes - General General: Alert and oriented X 3, No acute distress - HEENT HEENT: Atraumatic, PERRL, EOMI, Moist mucous membranes - Neck Neck: Supple, no meningeal sign - Cardiac Cardiac: RRR, No murmur - Respiratory Respiratory: No respiratory distress, Clear bilaterally - Abdomen Abdomen: Soft, Non tender, Non distended - Derm Derm: Other (Patient has extensive grade 2 pressure sores on his bilateral buttocks and his bilateral popliteal areas much worse on the right than the left.He has ) - Extremities Extremities: No deformity - Neuro Neuro: Alert and oriented X 3 - Psych Psych: Normal mood, Normal affect Results - Vitals Vitals: Vital Signs - 24 hr 10/05/19 10/05/19 10/05/19 10:22 11:19 12:26 Temperature 36.8 C Heart Rate 94 78 72 Respiratory 16 16 Rate Blood Pressure 120/69 113/71 112/75 O2 Saturation 99 98 10/05/19 14:50 Temperature Heart Rate 76 Respiratory 16 Rate Blood Pressure 117/65 O2 Saturation 98 Oxygen O2 Source Room air - Labs Labs: Laboratory Tests 10/05/19 10/05/19 12:25 12:25 WBC 7.2 RBC 4.10 L Hgb 14.1 Hct 40.3 L MCV 98.3 H MCH 34.4 H MCHC 35.0 RDW 13.7 Plt Count 203 MPV 10.2 Neut # (Auto) 5.2 Lymph # (Auto) 1.2 L Dickey # (Auto) 0.7 Eos # (Auto) 0.0 Baso # (Auto) 0.0 Absolute Nucleated RBC 0.00 Nucleated RBC % 0.0 Sodium 142 Potassium 3.5 Chloride 109 Carbon Dioxide 24 Anion Gap 9.0 BUN 28 H Creatinine 1.1 Estimated GFR (MDRD) 65 L Glucose 147 H Calcium 8.7 Total Bilirubin 1.4 H AST 41 ALT 40 Alkaline Phosphatase 95 Total Protein 6.5 L Albumin 2.9 L Globulin 3.6 Albumin/Globulin Ratio 0.8 L Lipase 50 PD MEDICAL DECISION MAKING - ED course Complexity details: reviewed old records, re-evaluated patient, considered differential, d/w patient ED course: Patient refused all interventions in the emergency department, despite the fact that I discussed with him that he does appear to have some cellulitis associated with his pressure sores. I asked social work to see the patient, because he has a longstanding history of refusing emergency department care and returning to a less than ideal home situation. The patient is still his own guardian, and despite interventions by our department in concert with social work and Adult Protective Services, plus the patient's family, on multiple occasions, the patient has steadfastly refused anything but a return to home. sorting cows worker did speak with the patient and ultimately, with the patient's son. The son was informed the patient has once again refused all care in the emergency department and wishes to go home. The family has been advised again that they may go through the court process to obtain power of claims attorney over the patient if they so choose, and they are considering this.He has been given a prescription for Bactrim to take at home, should he change his mind about treatment for cellulitis. We have discussed the usual indications for return, and that the patient may return to the emergency department at any time, should he wish to have further intervention. Departure - Departure Disposition: 01 Home, Self Care Clinical Impression: Pressure sore of ischial area, Cellulitis Condition: Fair Instructions: Pressure Ulcer Prevent, ED Infec Skin Cellulitis Prescriptions: Sulfamethox/Trimeth 800/160 [Bactrim Ds 800/160] 1 each PO BID #14 tablet Comments: You have opted not to have further medical evaluation today. At very least, you should follow-up with your primary care physician regarding your pressure sores. You should also take the antibiotics, as prescribed, to prevent further infection of your sores. Discharge Date/Time: 10/05/19 15:27
[2019-10-05 12:29] LABS: BASOPHILS % (AUTO) 0.6 %; EOSINOPHILS % (AUTO) 0.1 %; HGB - HEMOGLOBIN 14.1 g/dL (14.0-18.0); LYMPHOCYTES # (AUTO) 1.2 10^3/uL (1.5-3.5); LYMPHOCYTES % (AUTO) 16.8 %; MEAN CORPUSCULAR HEMOGLOBIN 34.4 pg (27.0-31.0); MEAN CORPUSCULAR VOLUME 98.3 fL (80.0-94.0); MEAN PLATELET VOLUME 10.2 fL (7.4-11.4); MONOCYTES # (AUTO) 0.7 10^3/uL (0.0-1.0); MONOCYTES % (AUTO) 10.2 %; NEUTROPHILS # (AUTO) 5.2 10^3/uL (1.5-6.6); NEUTROPHILS % (AUTO) 71.9 %; PLT - PLATELET COUNT 203 10^3/uL (130-450); RED CELL DISTRIBUTION WIDTH 13.7 % (12.0-15.0); WHITE BLOOD COUNT 7.2 x10^3/uL (4.8-10.8)
[2019-10-05 12:40] LABS: ALBUMIN 2.9 g/dL (3.2-5.5); ALBUMIN/GLOBULIN RATIO 0.8 (1.0-2.2); BILIRUBIN,TOTAL 1.4 mg/dL (0.2-1.0); CALCIUM 8.7 mg/dL (8.5-10.3); CREATININE 1.1 mg/dL (0.6-1.2); TOTAL PROTEIN 6.5 g/dL (6.7-8.2)
[2019-10-05 15:24] VITALS: BP 117/65
== END 2019-10-05 15:27 | disposition home or self-care (01) ==
LOC: EDUNIT# → ED 10:20
DX: L89.322 Pressure ulcer of left buttock, stage 2 (principal); L89.312 Pressure ulcer of right buttock, stage 2; L89.892 Pressure ulcer of other site, stage 2; L03.319 Cellulitis of trunk, unspecified; F17.210 Nicotine dependence, cigarettes, uncomplicated
CPT/HCPCS: 36415; 80053; 83690; 85025; 96360; 99283; 99284; A9270

== ENCOUNTER 2019-12-09 16:03 | Outpatient (CLI) | payer MEDICARE, OTHER | END 2019-12-09 16:04 | disposition EMS.NT | LOC: EMS 16:03 | PROVIDERS: ATTEND Surgery | DX: Z03.89 Encounter for observation for other suspected diseases and conditions ruled out (principal) ==

== ENCOUNTER 2020-11-07 03:58 | Outpatient (CLI) | payer MEDICARE, OTHER | END 2020-11-07 03:59 | disposition EMS.NT | LOC: EMS 03:58 | DX: Z03.89 Encounter for observation for other suspected diseases and conditions ruled out (principal) ==

== ENCOUNTER 2021-01-22 08:00 | Outpatient (CLI) | payer MEDICARE, OTHER ==
[2021-01-22 18:05] LABS: BASOPHILS % (AUTO) 0.6 %; EOSINOPHILS # (AUTO) 0.1 10^3/uL (0.0-0.7); EOSINOPHILS % (AUTO) 1.9 %; HCT - HEMATOCRIT 43.1 % (42.0-52.0); HGB - HEMOGLOBIN 14.5 g/dL (14.0-18.0); LYMPHOCYTES # (AUTO) 1.4 10^3/uL (1.5-3.5); LYMPHOCYTES % (AUTO) 21.3 %; MEAN CORPUSCULAR HEMOGLOBIN 33.3 pg (27.0-31.0); MEAN CORPUSCULAR HGB CONC 33.6 g/dL (32.0-36.0); MEAN CORPUSCULAR VOLUME 98.9 fL (80.0-94.0); MEAN PLATELET VOLUME 10.8 fL (7.4-11.4); MONOCYTES # (AUTO) 0.5 10^3/uL (0.0-1.0); MONOCYTES % (AUTO) 8.3 %; NEUTROPHILS # (AUTO) 4.3 10^3/uL (1.5-6.6); NEUTROPHILS % (AUTO) 67.6 %; PLT - PLATELET COUNT 232 10^3/uL (130-450); RED BLOOD COUNT 4.36 10^6/uL (4.70-6.10); RED CELL DISTRIBUTION WIDTH 13.7 % (12.0-15.0); WHITE BLOOD COUNT 6.4 x10^3/uL (4.8-10.8)
[2021-01-22 18:10] LABS: ALBUMIN 3.5 g/dL (3.2-5.5); BILIRUBIN,TOTAL 1.6 mg/dL (0.2-1.0); CALCIUM 8.1 mg/dL (8.5-10.3); CREATININE 1.5 mg/dL (0.6-1.2); POTASSIUM 4.2 mmol/L (3.5-5.0)
== END 2021-01-22 23:59 | disposition home or self-care (01) ==
LOC: LAB.WCP 08:00
PROVIDERS: ATTEND Family Medicine
DX: F10.10 Alcohol abuse, uncomplicated (principal)
CPT/HCPCS: 36415; 80053; 82977; 85025

== ENCOUNTER 2021-11-18 17:35 | Outpatient (CLI) | payer MEDICARE, OTHER | END 2021-11-18 17:36 | disposition critical access hospital (66) | LOC: EMS 17:35 | DX: I48.91 Unspecified atrial fibrillation (principal) | CPT/HCPCS: A0425; A0429 ==

== ENCOUNTER 2021-11-18 17:54 | Inpatient (IN) | payer MEDICARE, OTHER ==
[2021-11-18 18:31] LABS: BASOPHILS % (AUTO) 0.3 %; HCT - HEMATOCRIT 40.6 % (42.0-52.0); HGB - HEMOGLOBIN 14.8 g/dL (14.0-18.0); LYMPHOCYTES # (AUTO) 0.7 10^3/uL (1.5-3.5); LYMPHOCYTES % (AUTO) 9.1 %; MEAN CORPUSCULAR HGB CONC 36.5 g/dL (32.0-36.0); MEAN CORPUSCULAR VOLUME 93.3 fL (80.0-94.0); MEAN PLATELET VOLUME 10.7 fL (7.4-11.4); MONOCYTES # (AUTO) 0.7 10^3/uL (0.0-1.0); MONOCYTES % (AUTO) 9.3 %; NEUTROPHILS # (AUTO) 6.2 10^3/uL (1.5-6.6); NEUTROPHILS % (AUTO) 81.2 %; PLT - PLATELET COUNT 189 10^3/uL (130-450); RED BLOOD COUNT 4.35 10^6/uL (4.70-6.10); RED CELL DISTRIBUTION WIDTH 12.7 % (12.0-15.0); WHITE BLOOD COUNT 7.7 x10^3/uL (4.8-10.8)
--- NOTE | 2021-11-18 18:33 | ED Physician Documentation ---
History of Present Illness - Stated complaint Stated Complaint: AFIB - Chief complaint Chief Complaint: Cardiac - History obtained from History obtained from: Patient, EMS - Additonal information Additional information: 76-year-old gentleman with dementia. Has caregivers/housekeepers daily. But lives alone. Much of the history is from EMS because of the dementia although the patient is able to give some history. Reportedly they have to go out frequently for falls. He fell out of a chair twice today. It was unwitnessed both times, the tour actor just found him on the floor. He was too weak to get back up in the chair. Patient has no specific complaints. He does have a skin tear on the right arm. Reportedly may have been in A. fib prior to arrival but on arrival here he is in sinus tach. He does smoke. Denies drinking. Review of Systems Unable to obtain: Confused PD PAST MEDICAL HISTORY - Past Medical History Cardiovascular: Deep vein thrombosis Respiratory: None Endocrine/Autoimmune: None GI: None : None HEENT: None Psych: Anxiety Musculoskeletal: Other Derm: None - Past Surgical History Past Surgical History: Yes General: Appendectomy Ortho: Hip replacement, Other - Present Medications Home Medications: Ambulatory Orders Medication Instructions Recorded Confirmed No Known Home Medications 03/02/20 11/18/21 - Allergies Allergies/Adverse Reactions: Allergies Allergy/AdvReac Type Severity Reaction Status Date / Time No Known Drug Allergies Allergy Verified 11/18/21 18:12 - Social History Does the pt smoke?: Yes Smoking Status: Current every day smoker Does the pt drink ETOH?: Yes Does the pt have substance abuse?: No - Immunizations Immunizations are current?: Yes - POLST Patient has POLST: No PD ED PE NORMAL - Vitals Vital signs reviewed: Yes - General General: Other (He is alert and oriented to person and place but not time or events.) - HEENT HEENT: PERRL, EOMI - Neck Neck: Supple, no meningeal sign, No bony TTP - Cardiac Cardiac: Other (Tachycardic, regular, slightly diminished heart sounds) - Respiratory Respiratory: No respiratory distress, Clear bilaterally - Abdomen Abdomen: Normal bowel sounds, Soft, Non tender - Back Back: No CVA TTP, No spinal TTP - Derm Derm: Normal color, Warm and dry - Extremities Extremities: Other (5 cm very shallow V-shaped skin tear on the anterior upper right forearm. All major joints are palpated and nontender) - Neuro Eye Opening: Spontaneous Motor: Obeys Commands Verbal: Confused GCS Score: 14 Results - Vitals Vitals: Vital Signs - 24 hr 11/18/21 11/18/21 11/18/21 18:02 18:52 19:08 Temperature 35.8 C L Heart Rate 111 H 102 H 89 Respiratory 16 19 19 Rate Blood Pressure 103/46 L 110/65 94/60 O2 Saturation 100 100 100 11/18/21 19:30 Temperature Heart Rate 103 H Respiratory 20 Rate Blood Pressure 110/58 L O2 Saturation 100 Oxygen O2 Source Room air - EKG (time done) 1836 Rate: Rate (enter#) (101) Rhythm: Sinus tachycardia (w pvc) Harrison: RAD Ischemia: Other (RVH inferior Q waves/lateral). No: ST elevation c/w ischemia, ST depression - Labs Labs: Laboratory Tests 11/18/21 11/18/21 11/18/21 18:20 18:20 18:20 WBC 7.7 RBC 4.35 L Hgb 14.8 Hct 40.6 L MCV 93.3 MCH 34.0 H MCHC 36.5 H RDW 12.7 Plt Count 189 MPV 10.7 Neut # (Auto) 6.2 Lymph # (Auto) 0.7 L Da[place]hin # (Auto) 0.7 Eos # (Auto) 0.0 Baso # (Auto) 0.0 Absolute Nucleated RBC 0.00 Nucleated RBC % 0.0 Sodium 127 L Potassium 4.5 Chloride 96 L Carbon Dioxide 20 L Anion Gap 11.0 BUN 28 H Creatinine 1.5 H Estimated GFR (MDRD) 45 L Glucose 112 H Calcium 8.9 Total Bilirubin 2.0 H AST 101 H ALT 31 Alkaline Phosphatase 80 Total Creatine Kinase Troponin I High Sens 36.0 H* Total Protein 6.9 Albumin 3.0 L Globulin 3.9 Albumin/Globulin Ratio 0.8 L Lipase 26 Ethyl Alcohol 11/18/21 18:20 WBC RBC Hgb Hct MCV MCH MCHC RDW Plt Count MPV Neut # (Auto) Lymph # (Auto) [place] # (Auto) Eos # (Auto) Baso # (Auto) Absolute Nucleated RBC Nucleated RBC % Sodium Potassium Chloride Carbon Dioxide Anion Gap BUN Creatinine Estimated GFR (MDRD) Glucose Calcium Total Bilirubin AST ALT Alkaline Phosphatase Total Creatine Kinase 2654 H* Troponin I High Sens Total Protein Albumin Globulin Albumin/Globulin Ratio Lipase Ethyl Alcohol < 5.0 - Rads (name of study) CT head and cervical spine do not show any trauma. Microvascular ischemic disease in the head. Radiology: EMP read contemporaneously PD MEDICAL DECISION MAKING - ED course ED course: Right arm skin tear was irrigated and then dressed with Mepitel 76-year-old gentleman presents by ambulance for frequent falls including 2 today generalized weakness where he could not get off of the floor. Work-up here demonstrates rhabdomyolysis with prerenal azotemia. Elevated liver enzymes which do not look new per se but are worse from prior. He was started on twice maintenance IV fluids and spoke with Dr. Chaudhari for admission at 7:57 PM. Departure - Departure Disposition: 66 [facility] DC/Xfer Clinical Impression: Elevated LFTs, Tobacco abuse, Dehydration Rhabdomyolysis Qualifiers: Rhabdomyolysis type: non-traumatic Qualified Code(s): M62.82 - Rhabdomyolysis Condition: Serious
--- NOTE | 2021-11-18 18:41 | XRAY Report ---
PROCEDURE: Chest 1 View X-Ray INDICATIONS: Chest pain TECHNIQUE: One view of the chest was acquired. COMPARISON: CXR 02/06/2017. FINDINGS: Surgical changes and devices: None. Lungs and pleura: No pleural effusions or pneumothorax. Lungs are clear. Mediastinum: Mediastinal contours appear unchanged. Heart size is normal. Bones and chest wall: No suspicious bony lesions. Overlying soft tissues appear unremarkable. IMPRESSION: No acute cardiopulmonary abnormality. Reviewed by: Valentin Kinney MD on 11/18/2021 6:39 PM PDT Approved by: Valentin Kinney MD on 11/18/2021 6:39 PM PDT Station ID: [id number]
[2021-11-18 18:49] LABS: ALBUMIN/GLOBULIN RATIO 0.8 (1.0-2.2); CALCIUM 8.9 mg/dL (8.5-10.3); CREATININE 1.5 mg/dL (0.6-1.2); POTASSIUM 4.5 mmol/L (3.5-5.0); TOTAL PROTEIN 6.9 g/dL (6.7-8.2)
--- NOTE | 2021-11-18 19:25 | CT Report ---
PROCEDURE: HEAD WO INDICATIONS: poss head inj TECHNIQUE: Noncontrast 4.5 mm thick angled axial sections acquired from the foramen magnum to the vertex. For r adiation dose reduction, the following was used: automated exposure control, adjustment of mA and/or kV according to patient size. COMPARISON: None. FINDINGS: Image quality: Excellent. Rescan with helical technique due to artifact. CSF spaces: Basal cisterns are patent. No extra-axial fluid collections. Ventricles are normal in size and shape. Brain: No midline shift. No intracranial masses or hemorrhage. No area of hypodensity in a vascula r distribution to suggest acute infarction. There is periventricular hypodensity consistent with lacing string cutter [place] microvascular ischemic disease. Age-related parenchymal loss. Skull and face: Calvarium and visualized facial bones are intact, without suspicious lesions. Sinuses: Visualized sinuses and mastoids are clear. IMPRESSION: No acute intracranial abnormality. Chronic microvascular ischemic disease. Reviewed by: Valentin Kinney MD on 11/18/2021 7:23 PM PDT Approved by: Valentin Kinney MD on 11/18/2021 7:23 PM PDT Station ID: [id number]
--- NOTE | 2021-11-18 19:27 | CT Report ---
PROCEDURE: CERVICAL SPINE WO INDICATIONS: poss head inj TECHNIQUE: Noncontrast 3 mm thick sections acquired from the skull base to the T4 level. Sagittal and coronal r eformats were then constructed. For radiation dose reduction, the following was used: automated exp osure control, adjustment of mA and/or kV according to patient size. COMPARISON: None. FINDINGS: Image quality: Excellent. Bones: No fractures or dislocations. Mild degenerative change in the cervical spine. Visualized sup erior ribs are intact. Soft tissues: Prevertebral soft tissues are normal in thickness. Moderate plaque at the carotid bulb s. No paravertebral hematomas. No apical pneumothoraces. Severe emphysematous change. IMPRESSION: No acute osseous abnormality. Reviewed by: Valentin Kinney MD on 11/18/2021 7:26 PM PDT Approved by: Valentin Kinney MD on 11/18/2021 7:26 PM PDT Station ID: [id number]
[2021-11-18 19:43] LABS: ETOH - ETHANOL < 5.0 mg/dL
[2021-11-18 19:45] LABS: CK- CREATINE KINASE 2654 IU/L (22-269)
[2021-11-18] MEDS ORDERED: SODIUM CHLORIDE 0.9% 1,000 ML IV STA (19:51)
[2021-11-18] MEDS ORDERED: oxyCODONE 5 MG TABLET PO PRN (19:56)
[2021-11-18] MEDS ORDERED: SODIUM CHLORIDE FLUSH 0.9% 10 ML SYRINGE IVP PRN (19:56)
[2021-11-18] MEDS ORDERED: ONDANSETRON 4 MG/2 ML VIAL IVP PRN (19:56)
--- NOTE | 2021-11-18 20:20 | HISTORY & PHYSICAL EXAMINATION ---
Chief Complaint - Chief Complaint Chief Complaint: fell out of wheel chair X2 today History of Present Illness - Admitted From Admitted From:: [facility] ED - History Obtained From Records Reviewed: yes History obtained from: ED provider and records Exam Limitations: dementia - History of Present Illness HPI Comment/Other: Patient's history is limited due to dementia. According to the ED providers HPI, the patient was brought to the ED by EMS for multiple falls at home. He reported falling out of his wheelchair twice today. It was unwitnessed both times. He was too weak to get back up in the chair. He denies any significant complaints. He has extensive skin tears and bruising. Attempting range of motion pretty significant pain. Work-up in the ED included creatinine kinase level which was at 2654. He was presented for admission for continued treatment of potential rhabdomyolysis. History - Past Medical History Cardiovascular: reports: Peripheral Vascular Disease, Deep vein thrombosis Respiratory: reports: None Endocrine/Autoimmune: reports: None GI: reports: None : reports: None HEENT: reports: None Psych: reports: Anxiety Musculoskeletal: reports: Other Derm: reports: None MRSA Hx?: No - Past Surgical History General: reports: Appendectomy Ortho: reports: Hip replacement, Other (left BKA) - Family & Social History Family History Comment/Other: Per records, patient denied any significant family history Social History Notes: History of smoking half pack of cigarettes daily. Drinks about 4 beers a day. Denies recreational substance use. - POLST Patient has POLST: No Meds/Allgy - Home Medications Home Medications: Ambulatory Orders Medication Instructions Recorded Confirmed No Known Home Medications 03/02/20 11/18/21 - Allergies Allergies/Adverse Reactions: Allergies Allergy/AdvReac Type Severity Reaction Status Date / Time No Known Drug Allergies Allergy Verified 11/18/21 18:12 Review of Systems - Constitutional Constitutional: denies: Fatigue, Fever, Chills - Eyes Eyes: denies: Pain, Vision loss - Ears, Nose & Throat Ears, Nose & Throat: denies: Ear pain - Cardiovascular Cariovascular: reports: Irregular heart rate. denies: Palpitations, Chest pain, Edema - Respiratory Respiratory: denies: Cough, Sputum production, Wheezing, SOB at rest, SOB with exertion - Gastrointestinal Gastrointestinal: denies: Abdominal pain, Abdominal distention, Constipation, Diarrhea, Nausea, Vomiting - Genitourinary Genitourinary: denies: Dysuria, Frequency, Urgency, Hematuria - Musculoskeletal Musculoskeletal: reports: Muscle aches. denies: Muscle pain, Back pain - Integumentary Integumentary: denies: Rash, Pruritis, Lesions - Neurological Neurological: reports: General weakness - Psychiatric Psychiatric: denies: Depression, Anxiety - Endocrine Endocrine: denies: Polyuria, Polydypsia - Hematologic/Lymphatic Hematologic/Lymphatic: denies: Anemia, Bruising, Petechiae Prior Level of Functionality: He lives alone in his house but has caregivers/housekeepers who come in daily. He has a left BKA and uses a wheelchair. Exam - Vital Signs Vital Signs: Vital Signs x48h Temp Pulse Resp BP Pulse Ox 11/18/21 20:00 104 H 22 97/63 100 11/18/21 19:30 103 H 20 110/58 L 100 11/18/21 19:08 89 19 94/60 100 11/18/21 18:52 102 H 19 110/65 100 11/18/21 18:02 35.8 C L 111 H 16 103/46 L 100 - Physical Exam General Appearance: positive: Alert, Moderate distress Eyes Bilateral: positive: PERRL, EOMI ENT: positive: Dry mucous membranes Neck: positive: No JVD, Trachea midline Respiratory: positive: Chest non-tender, No respiratory distress, Breath sounds nml. negative: Wheezes, Rales, Rhonchi Cardiovascular: positive: No murmur, Irregularly irregular, Tachycardia Abdomen: positive: Non-tender, No organomegaly, Nml bowel sounds, No distention. negative: Guarding, Rebound Back: positive: Nml inspection Skin: positive: Dry, Decubitus, Other (very thin and dry skin with skin tears on right upper extremity and bruising.) Extremities: positive: No pedal edema, Other (left BKA) Neurologic/Psychiatric: positive: Mood/affect nml, Other (Oriented to self mainly) Conclusion/Plan - Problem List (1) Rhabdomyolysis Conclusion/Plan: Likely secondary to multiple falls. Patient's creatinine kinase was 2654. Imaging included CT of the brain, neck and chest x-ray. Patient's shoulders and hips were also image. These were negative for any fractures or acute findings. IV hydration with normal saline at 150 mL/h initiated. We will continue. We will trend patient's creatinine kinase daily. (2) AMY (acute kidney injury) Conclusion/Plan: Likely prerenal due to dehydration. Also possibly secondary to rhabdomyolysis. Patient's creatinine was 1.5 with estimated GFR 45. Patient currently receiving IV hydration with normal saline at 150 mL/h. We will monitor renal function daily. (3) Atrial fibrillation Conclusion/Plan: New onset. Etiology undetermined. Will check TSH and BNP. Initial troponin was 36. Will trend. This could also be due to alcohol abuse. (4) Elevated troponin I level Conclusion/Plan: Mild. Initial troponin was 36. EKG showed atrial fibrillation. Will trend troponin x2 more. (5) Alcohol abuse Conclusion/Plan: Patient has history of alcohol abuse. CIWA protocol ordered. Currently patient is somewhat somnolent/lethargic despite no potentially sedating medication given. He may benefit from Librium to minimize chances of alcohol withdrawal starting tomorrow/ when more alert. - Lab Results Fish Bones: 11/18/21 22:17 11/18/21 18:20 Core Measures - Anticipated LOS I expect patient to be DC'd or transferred within 96 hours.: Yes - DVT/VTE - Prophylaxis VTE/DVT Device ordered at admit?: Yes
--- NOTE | 2021-11-18 21:06 | XRAY Report ---
PROCEDURE: Hips 3-4V BILAT INDICATIONS: Fall with hip pain TECHNIQUE: 3 views of each hip were acquired. COMPARISON: None FINDINGS: Bones: No visible fractures or dislocations. Left hip arthroplasty components are present. No peripr osthetic fracture or dislocation. No suspicious bony lesions. The visualized pelvic ring appears int act. Soft tissues: No suspicious soft tissue calcifications or masses. Moderate to heavy arterial calcif ication. IMPRESSION: 1. Left hip arthroplasty. 2. No visible fractures or dislocations. 3. Heavy atherosclerotic ossification. Reviewed by: Christi Melendrez MD on 11/18/2021 9:05 PM PDT Approved by: Christi Melendrez MD on 11/18/2021 9:05 PM PDT Station ID: [id number]
[2021-11-18] MEDS ORDERED: LORazepam 2 MG/ML VIAL IVP PRN (21:36)
--- NOTE | 2021-11-18 21:58 | XRAY Report ---
PROCEDURE: Shoulder 3 View BILAT INDICATIONS: Fall with shoulder pain TECHNIQUE: 3 views of each shoulder were acquired. COMPARISON: None. FINDINGS: Bones: No fractures or dislocations. Severe degenerative changes in the right glenohumeral joint an d acromioclavicular joint. There is decreased acromiohumeral interval on the right. There are mild de generative changes the left glenohumeral joint and moderate degeneration in the left AC joint. No kindra picious bony lesions. Visualized ribs appear intact. Soft tissues: No suspicious soft tissue calcifications. IMPRESSION: 1. No acute fracture or dislocation. 2. Mild to severe bilateral degeneration, right much worse than left. Reviewed by: Christi Melendrez MD on 11/18/2021 9:56 PM PDT Approved by: Christi Melendrez MD on 11/18/2021 9:56 PM PDT Station ID: [id number]
[2021-11-18] MEDS: NICOTINE 14 MG PATCH TOP SCH (22:02)
[2021-11-18 22:23] LABS: BASOPHILS % (AUTO) 0.2 %; HCT - HEMATOCRIT 34.8 % (42.0-52.0); HGB - HEMOGLOBIN 12.5 g/dL (14.0-18.0); LYMPHOCYTES # (AUTO) 0.9 10^3/uL (1.5-3.5); LYMPHOCYTES % (AUTO) 14.2 %; MEAN CORPUSCULAR HEMOGLOBIN 33.5 pg (27.0-31.0); MEAN CORPUSCULAR HGB CONC 35.9 g/dL (32.0-36.0); MEAN CORPUSCULAR VOLUME 93.3 fL (80.0-94.0); MEAN PLATELET VOLUME 10.4 fL (7.4-11.4); MONOCYTES # (AUTO) 0.6 10^3/uL (0.0-1.0); NEUTROPHILS # (AUTO) 5.1 10^3/uL (1.5-6.6); NEUTROPHILS % (AUTO) 76.3 %; PLT - PLATELET COUNT 167 10^3/uL (130-450); RED BLOOD COUNT 3.73 10^6/uL (4.70-6.10); RED CELL DISTRIBUTION WIDTH 12.8 % (12.0-15.0); WHITE BLOOD COUNT 6.6 x10^3/uL (4.8-10.8)
[2021-11-18] MEDS: SODIUM CHLORIDE FLUSH 0.9% 10 ML SYRINGE IVP SCH (23:37)
[2021-11-19] MEDS: SODIUM CHLORIDE 0.9% 1,000 ML IV SCH ×3 (00:02→16:15)
[2021-11-19 05:30] LABS: CALCIUM 7.6 mg/dL (8.5-10.3); CREATININE 1.2 mg/dL (0.6-1.2); POTASSIUM 3.8 mmol/L (3.5-5.0)
[2021-11-19] MEDS ORDERED: SODIUM CHLORIDE 0.9% 1,000 ML IV SCH ×2 (06:49→08:38)
[2021-11-19] MEDS: SODIUM CHLORIDE FLUSH 0.9% 10 ML SYRINGE IVP SCH ×2 (08:38→21:57)
[2021-11-19] MEDS: NICOTINE 14 MG PATCH TOP SCH (09:19)
[2021-11-19] MEDS: PRENATAL VITAMIN TABLET PO SCH (09:19)
[2021-11-19] MEDS: THIAMINE 100 MG TABLET PO SCH (09:19)
--- NOTE | 2021-11-19 10:59 | PROVIDER PROGRESS NOTE ---
Assessment/Plan - Problem List (1) Rhabdomyolysis Assessment/Plan: 11/19 improved, CK is down to 1100. we will continue IVF, We will trend patient's creatinine kinase daily. (2) AMY (acute kidney injury) Conclusion/Plan: 11/19 improved, creatinine is 1.2 from 1.5, continue IVF and lab monitor (3) Elevated troponin I level Conclusion/Plan: repeat troponin is at 30, EKG does not support ischemic change (4) Alcohol abuse Conclusion/Plan: Patient has history of alcohol abuse. CIWA protocol ordered. but pt does not show alcohol withdrawal continue and B-1. (5)dementia Patient has hx of dementia. today pt is still confused, per PT report, it is likely his baseline. pt has hx of advanced dementia. pt is living alone, Consult with social work for disposition planning (6)hyponatremia Patient has hx of hyponatremia, today his Na is 128. it is likely hyponatremia hypovolmia. continue IV of NS, and lab monitor (7)fall pt has hx of frequent fall, and advanced dementia, and live alone. pt will have PT/OT evaluation, onsult with social work for disposition planning. pt likely need replacement. 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 Per his hx, it was likely from PAD disease. continue support for pt, Consult with social work for disposition planning - Current Meds Current Meds: Current Medications Generic Name Dose Route Start Last Admin Trade Name Oli PRN Reason Stop Dose Admin Nicotine 1 patch 11/18/21 21:42 11/19/21 09:19 Nicotine 14 Mg Patch TOP 1 patch DAILY ADRIANA Administration Multivit/Folic Acid/Iron 1 tab 11/19/21 09:00 11/19/21 09:19 Vitamin Tablet PO 1 tab DAILY ADRIANA Administration Sodium Chloride 10 ml 11/19/21 01:00 11/19/21 08:38 Sodium Chloride Flush 0.9% 10 Ml Syringe IVP Not Given 0100,0900,1700 ADRIANA Thiamine HCl 100 mg 11/19/21 09:00 11/19/21 09:19 Thiamine 100 Mg Tablet PO 100 mg DAILY ADRIANA Administration - Lab Result Fish Bone Diagrams: 11/18/21 22:17 11/19/21 04:56 - Additional Planning My Orders: My Active Orders 11/19/21 Social Work Consult [CONS] Routine 11/19/21 08:42 Sodium Chloride 0.9% [Normal Saline 0.9%] 1,000 ml IV 100 mls/hr 11/19/21 Lunch Regular Diet [DIET] 11/20/21 05:00 CMP [COMPREHENSIVE METABOLIC PANEL] [CHEM] DAILYLAB 11/21/21 05:00 CMP [COMPREHENSIVE METABOLIC PANEL] [CHEM] DAILYLAB 11/22/21 05:00 CMP [COMPREHENSIVE METABOLIC PANEL] [CHEM] DAILYLAB 11/23/21 05:00 CMP [COMPREHENSIVE METABOLIC PANEL] [CHEM] DAILYLAB 11/24/21 05:00 CMP [COMPREHENSIVE METABOLIC PANEL] [CHEM] DAILYLAB Subjective - Subjective Patient Reports: Resting Comfortably Objective Vital Signs: Vital Signs - 24 hr 11/18/21 11/18/21 11/18/21 18:02 18:52 19:08 Temperature 35.8 C L Heart Rate 111 H 102 H 89 Heart Rate [ Brachial] Respiratory 16 19 19 Rate Blood Pressure 103/46 L 110/65 94/60 Blood Pressure [Left Radial artery] Blood Pressure [Right Brachial artery] Blood Pressure [right leg] O2 Saturation 100 100 100 11/18/21 11/18/21 11/18/21 19:30 20:00 20:36 Temperature 36.8 C Heart Rate 103 H 104 H Heart Rate [ 86 Brachial] Respiratory 20 22 16 Rate Blood Pressure 110/58 L 97/63 Blood Pressure [Left Radial artery] Blood Pressure 103/53 L [Right Brachial artery] Blood Pressure [right leg] O2 Saturation 100 100 99 11/18/21 11/19/21 11/19/21 23:42 04:43 07:32 Temperature 36.5 C 36.3 C L 36.8 C Heart Rate Heart Rate [ 100 98 104 H Brachial] Respiratory 16 16 18 Rate Blood Pressure Blood Pressure 121/54 L 110/41 L [Left Radial artery] Blood Pressure [Right Brachial artery] Blood Pressure 95/69 [right leg] O2 Saturation 99 97 98 Oxygen O2 Source Room air I&O (Last 24 Hrs): Intake and Output Totals x24h 11/17/21 11/18/21 11/19/21 23:59 23:59 23:59 Intake Total 1000 1384.167 Balance 1000 1384.167 General: Alert, Cooperative, No acute distress HEENT: Atraumatic Neck: Supple Lymphatic: no adenopathy Neuro: Alert, Non Focal Cardiovascular: Regular rate, Normal S1, Normal S2 Respiratory: Chest non-tender, No respiratory distress Abdomen: Normal bowel sounds, Soft Extremities: Normal pulses - Results Results: Laboratory Results WBC 6.6 x10^3/uL (4.8-10.8) 11/18/21 22:17 RBC 3.73 10^6/uL (4.70-6.10) L 11/18/21 22:17 Hgb 12.5 g/dL (14.0-18.0) L 11/18/21:17 Hct 34.8 % (42.0-52.0) L 11/18/21 22:17 MCV 93.3 fL (80.0-94.0) 11/18/21: MCH 33.5 pg (27.0-31.0) H 11/18/21: MCHC 35.9 g/dL (32.0-36.0) 11/18/21: RDW 12.8 % (12.0-15.0) 11/18/21:17 Plt Count 167 10^3/uL (130-450) 11/18/21 22:17 MPV 10.4 fL (7.4-11.4) 11/18/21 22:17 Neut # (Auto) 5.1 10^3/uL (1.5-6.6) 11/18/21 22:17 Lymph # (Auto) 0.9 10^3/uL (1.5-3.5) L 11/18/21 22:17 Gem # (Auto) 0.6 10^3/uL (0.0-1.0) 11/18/21:17 Eos # (Auto) 0.0 10^3/uL (0.0-0.7) 11/18/21 22:17 Baso # (Auto) 0.0 10^3/uL (0.0-0.1) 11/18/21:17 Absolute Nucleated RBC 0.00 x10^3/uL 11/18/21 22:17 Nucleated RBC % 0.0 /100WBC 11/18/21 22:17 Sodium 128 mmol/L (135-145) L 11/19/21 04:56 Potassium 3.8 mmol/L (3.5-5.0) 11/19/21 04:56 Chloride 103 mmol/L (101-111) 11/19/21 04:56 Carbon Dioxide 17 mmol/L (21-32) L 11/19/21 04:56 Anion Gap 8.0 (6-13) 11/19/21 04:56 BUN 29 mg/dL (6-20) H 11/19/21 04:56 Creatinine 1.2 mg/dL (0.6-1.2) 11/19/21 04:56 Estimated GFR (MDRD) 59 (>89) L 11/19/21 04:56 Glucose 84 mg/dL (70-100) 11/19/21 04:56 Calcium 7.6 mg/dL (8.5-10.3) L 11/19/21 04:56 Total Bilirubin 2.0 mg/dL (0.2-1.0) H 11/18/21 18:20 AST 101 IU/L (10-42) H 11/18/21 18:20 ALT 31 IU/L (10-60) 11/18/21 18:20 Alkaline Phosphatase 80 IU/L (42-121) 11/18/21 18:20 Total Creatine Kinase 1075 IU/L (22-269) H* 11/19/21 04:56 Troponin I High Sens 30.2 ng/L (2.3-19.7) H* 11/19/21 04:56 B-Natriuretic Peptide 352 pg/mL (5-100) H 11/18/21 22:17 Total Protein 6.9 g/dL (6.7-8.2) 11/18/21 18:20 Albumin 3.0 g/dL (3.2-5.5) L 11/18/21 18:20 Globulin 3.9 g/dL (2.1-4.2) 11/18/21 18:20 Albumin/Globulin Ratio 0.8 (1.0-2.2) L 11/18/21 18:20 Lipase 26 U/L (22-51) 11/18/21 18:20 TSH 5.19 uIU/mL (0.34-5.60) 11/19/21 04:56 Ethyl Alcohol < 5.0 mg/dL 11/18/21 18:20 SARS-CoV-2 (PCR) NOT DETECTED 11/18/21 19:55 - Procedures Procedures: Procedures REPLACE L HIP JT, FEMORAL W METAL, UNCEMENT, OPEN (09/15/15) ABX Reporting Has patient been on IV antibiotics over the past 48 hours?: No Current Medications - Current Medications Current Medications: Active Medications Acetaminophen (Acetaminophen 325 Mg Tablet) 650 mg PO Q4HR PRN PRN Reason: Pain 1 to 4, or Fever Sodium Chloride (Normal Saline 0.9%) 1,000 mls @ 100 mls/hr IV .Q10H [facility] Lorazepam (Lorazepam 2 Mg/Ml Vial) 1 mg IVP Q30M PRN; Protocol PRN Reason: CIWA >8 Nicotine (Nicotine 14 Mg Patch) 1 patch TOP DAILY [facility] Last Admin: 11/19/21 09:19 Dose: 1 patch Ondansetron HCl (Ondansetron 4 Mg/2 Ml Vial) 4 mg IVP Q6HR PRN PRN Reason: Nausea / Vomiting Oxycodone HCl (Oxycodone 5 Mg Tablet) 5 mg PO Q4HR PRN PRN Reason: Pain 5 to 7 Multivit/Folic Acid/Iron ( Vitamin Tablet) 1 tab PO DAILY [facility] Last Admin: 11/19/21 09:19 Dose: 1 tab Sodium Chloride (Sodium Chloride Flush 0.9% 10 Ml Syringe) 10 ml IVP PRN PRN PRN Reason: NEEDED PER PROVIDER ORDERS Sodium Chloride (Sodium Chloride Flush 0.9% 10 Ml Syringe) 10 ml IVP 0100,090 0,1700 [facility] Last Admin: 11/19/21 08:38 Dose: Not Given Thiamine HCl (Thiamine 100 Mg Tablet) 100 mg PO DAILY [facility] Last Admin: 11/19/21 09:19 Dose: 100 mg No Known Home Medications 03/02/20
[2021-11-19] MEDS: ACETAMINOPHEN 325 MG TABLET PO PRN (22:39)
[2021-11-20] MEDS: SODIUM CHLORIDE FLUSH 0.9% 10 ML SYRINGE IVP SCH ×4 (00:32→23:54)
[2021-11-20] MEDS: SODIUM CHLORIDE 0.9% 1,000 ML IV SCH ×3 (01:18→20:52)
[2021-11-20 05:35] LABS: BASOPHILS % (AUTO) 0.3 %; EOSINOPHILS % (AUTO) 0.6 %; HCT - HEMATOCRIT 29.8 % (42.0-52.0); HGB - HEMOGLOBIN 10.4 g/dL (14.0-18.0); LYMPHOCYTES % (AUTO) 28.7 %; MEAN CORPUSCULAR HEMOGLOBIN 33.7 pg (27.0-31.0); MEAN CORPUSCULAR HGB CONC 34.9 g/dL (32.0-36.0); MEAN CORPUSCULAR VOLUME 96.4 fL (80.0-94.0); MEAN PLATELET VOLUME 10.4 fL (7.4-11.4); MONOCYTES # (AUTO) 0.3 10^3/uL (0.0-1.0); MONOCYTES % (AUTO) 7.3 %; NEUTROPHILS # (AUTO) 2.2 10^3/uL (1.5-6.6); NEUTROPHILS % (AUTO) 62.8 %; PLT - PLATELET COUNT 157 10^3/uL (130-450); RED BLOOD COUNT 3.09 10^6/uL (4.70-6.10); RED CELL DISTRIBUTION WIDTH 13.1 % (12.0-15.0); WHITE BLOOD COUNT 3.6 x10^3/uL (4.8-10.8)
[2021-11-20 05:45] LABS: ALBUMIN 1.9 g/dL (3.2-5.5); ALBUMIN/GLOBULIN RATIO 0.7 (1.0-2.2); BILIRUBIN,TOTAL 0.8 mg/dL (0.2-1.0); CALCIUM 7.4 mg/dL (8.5-10.3); POTASSIUM 3.4 mmol/L (3.5-5.0); TOTAL PROTEIN 4.6 g/dL (6.7-8.2)
[2021-11-20] MEDS ORDERED: POTASSIUM CHLORIDE 20 MEQ TABLET PO ONE (07:34)
[2021-11-20] MEDS ORDERED: SODIUM CHLORIDE 0.9% 1,000 ML IV SCH (08:00)
[2021-11-20] MEDS: PRENATAL VITAMIN TABLET PO SCH (09:00)
[2021-11-20] MEDS: THIAMINE 100 MG TABLET PO SCH (09:00)
[2021-11-20] MEDS: NICOTINE 14 MG PATCH TOP SCH (09:01)
[2021-11-20] MEDS: ACETAMINOPHEN 325 MG TABLET PO PRN (09:06)
--- NOTE | 2021-11-20 10:13 | PROVIDER PROGRESS NOTE ---
Assessment/Plan - Problem List (1) Rhabdomyolysis Assessment/Plan: 11/20 continue improved. CK is down to 700, continue IVF, We will trend patient's creatinine kinase daily 11/19 improved, CK is down to 1100. we will continue IVF, We will trend patient's creatinine kinase daily. (2) AMY (acute kidney injury) Conclusion/Plan: 11/20 creatinine is 1, resolved. 11/19 improved, creatinine is 1.2 from 1.5, continue IVF and lab monitor (3) Elevated troponin I level Conclusion/Plan: repeat troponin is at 30, EKG does not support ischemic change (4) Alcohol abuse Conclusion/Plan: Patient has history of alcohol abuse. CIWA protocol ordered. but pt does not show alcohol withdrawal continue and B-1. (5)dementia Patient has hx of dementia. today pt is still confused, per PT report, it is likely his baseline. pt has hx of advanced dementia. pt is living alone, Consult with social work for disposition planning (6)hyponatremia Patient has hx of hyponatremia, today his Na is 128. it is likely hyponatremia hypovolmia. continue IV of NS, and lab monitor (7)fall 11/20 continue PT/OT evaluation and treatment, consult with mental health social worker for d/c planning. pt likely need replacement. pt has hx of frequent fall, and advanced dementia, and live alone. pt will have PT/OT evaluation, onsult with social work for disposition planning. pt likely need replacement. 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 Per his hx, it was likely from PAD disease. continue support for pt, Consult with social work for disposition planning - Current Meds Current Meds: Current Medications Generic Name Dose Route Start Last Admin Trade Name Freq PRN Reason Stop Dose Admin Acetaminophen 650 mg 11/18/21 19:56 11/20/21 09:06 Acetaminophen 325 Mg Tablet PO 650 mg Q4HR PRN Administration Pain 1 to 4, or Fever Sodium Chloride 1,000 mls @ 100 mls/hr 11/20/21 09:18 11/20/21 10:07 Normal Saline 0.9% IV 11/21/21 05:17 100 mls/hr .Q10H ADRIANA Administration Nicotine 1 patch 11/18/21 21:42 11/20/21 09:01 Nicotine 14 Mg Patch TOP 1 patch DAILY ADRIANA Administration Multivit/Folic Acid/Iron 1 tab 11/19/21 09:00 11/20/21 09:00 Vitamin Tablet PO 1 tab DAILY ADRIANA Administration Sodium Chloride 10 ml 11/19/21 01:00 11/20/21 09:01 Sodium Chloride Flush 0.9% 10 Ml Syringe IVP Not Given 0100,0900,1700 ADRIANA Thiamine HCl 100 mg 11/19/21 09:00 11/20/21 09:00 Thiamine 100 Mg Tablet PO 100 mg DAILY ADRIANA Administration - Lab Result Fish Bone Diagrams: 11/20/21 05:23 11/20/21 05:23 - Additional Planning My Orders: My Active Orders 11/19/21 Lunch Regular Diet [DIET] 11/20/21 09:18 Sodium Chloride 0.9% [Normal Saline 0.9%] 1,000 ml IV 100 mls/hr 11/20/21 10:07 FERRITIN [IAI] Routine IRON TIBC PANEL [CHEM] Routine LDH - LACTATE DEHYDROGENASE [CHEM] Routine RETIC [HEME] Routine VITAMIN B12 [IAI] Routine 11/20/21 11:00 Pantoprazole [Protonix] 40 mg PO QDAC 11/21/21 05:00 CMP [COMPREHENSIVE METABOLIC PANEL] [CHEM] DAILYLAB 11/22/21 05:00 CMP [COMPREHENSIVE METABOLIC PANEL] [CHEM] DAILYLAB 11/23/21 05:00 CMP [COMPREHENSIVE METABOLIC PANEL] [CHEM] DAILYLAB 11/24/21 05:00 CMP [COMPREHENSIVE METABOLIC PANEL] [CHEM] DAILYLAB Subjective - Subjective Patient Reports: Resting Comfortably Objective Vital Signs: Vital Signs - 24 hr 11/19/21 11/19/21 11/19/21 10:30 11:05 15:44 Temperature 36.5 C 37.0 C Heart Rate [ 86 93 Brachial] Heart Rate [ 63 Supine] Respiratory 18 20 Rate Blood Pressure 115/51 L [Left Radial artery] Blood Pressure 125/63 [Right Brachial artery] Blood Pressure 115/50 L [Supine] O2 Saturation 96 97 11/19/21 11/20/21 11/20/21 20:00 01:00 05:00 Temperature 36.8 C 36.9 C 36.9 C Heart Rate [ 84 69 70 Brachial] Heart Rate [ Supine] Respiratory 20 16 16 Rate Blood Pressure [Left Radial artery] Blood Pressure 108/47 L 96/50 L 97/46 L [Right Brachial artery] Blood Pressure [Supine] O2 Saturation 97 96 95 11/20/21 07:53 Temperature 36.9 C Heart Rate [ 83 Brachial] Heart Rate [ Supine] Respiratory 18 Rate Blood Pressure [Left Radial artery] Blood Pressure 101/52 L [Right Brachial artery] Blood Pressure [Supine] O2 Saturation 98 Oxygen O2 Source Room air I&O (Last 24 Hrs): Intake and Output Totals x24h 11/18/21 11/19/21 11/20/21 23:59 23:59 23:59 Intake Total 1000 3047.500 1618 Balance 1000 3047.500 1618 General: Alert, Cooperative, No acute distress HEENT: Atraumatic Neck: Supple Lymphatic: no adenopathy Neuro: Alert, Non Focal Cardiovascular: Regular rate, Normal S1, Normal S2 Respiratory: Chest non-tender, No respiratory distress Abdomen: Normal bowel sounds, Soft Extremities: Normal pulses - Results Results: Laboratory Results WBC 3.6 x10^3/uL (4.8-10.8) L 11/20/21 05:23 RBC 3.09 10^6/uL (4.70-6.10) L 11/20/21 05:23 Hgb 10.4 g/dL (14.0-18.0) L 11/20/21 05:23 Hct 29.8 % (42.0-52.0) L 11/20/21 05:23 MCV 96.4 fL (80.0-94.0) H 11/20/21 05:23 MCH 33.7 pg (27.0-31.0) H 11/20/21 05:23 MCHC 34.9 g/dL (32.0-36.0) 11/20/21 05:23 RDW 13.1 % (12.0-15.0) 11/20/21 05:23 Plt Count 157 10^3/uL (130-450) 11/20/21 05:23 MPV 10.4 fL (7.4-11.4) 11/20/21 05:23 Neut # (Auto) 2.2 10^3/uL (1.5-6.6) 11/20/21 05:23 Lymph # (Auto) 1.0 10^3/uL (1.5-3.5) L 11/20/21 05:23 Brooke # (Auto) 0.3 10^3/uL (0.0-1.0) 11/20/21 05:23 Eos # (Auto) 0.0 10^3/uL (0.0-0.7) 11/20/21 05:23 Baso # (Auto) 0.0 10^3/uL (0.0-0.1) 11/20/21 05:23 Absolute Nucleated RBC 0.00 x10^3/uL 11/20/21 05:23 Nucleated RBC % 0.0 /100WBC 11/20/21 05:23 Sodium 133 mmol/L (135-145) L 11/20/21 05:23 Potassium 3.4 mmol/L (3.5-5.0) L 11/20/21 05:23 Chloride 108 mmol/L (101-111) 11/20/21 05:23 Carbon Dioxide 20 mmol/L (21-32) L 11/20/21 05:23 Anion Gap 5.0 (6-13) L 11/20/21 05:23 BUN 19 mg/dL (6-20) 11/20/21 05:23 Creatinine 1.0 mg/dL (0.6-1.2) 11/20/21 05:23 Estimated GFR (MDRD) 72 (>89) L 11/20/21 05:23 Glucose 125 mg/dL (70-100) H 11/20/21 05:23 Calcium 7.4 mg/dL (8.5-10.3) L 11/20/21 05:23 Total Bilirubin 0.8 mg/dL (0.2-1.0) 11/20/21 05:23 AST 78 IU/L (10-42) H 11/20/21 05:23 ALT 34 IU/L (10-60) 11/20/21 05:23 Alkaline Phosphatase 47 IU/L (42-121) 11/20/21 05:23 Total Creatine Kinase 694 IU/L (22-269) H 11/20/21 05:23 Troponin I High Sens 30.2 ng/L (2.3-19.7) H* 11/19/21 04:56 B-Natriuretic Peptide 352 pg/mL (5-100) H 11/18/21 22:17 Total Protein 4.6 g/dL (6.7-8.2) L 11/20/21 05:23 Albumin 1.9 g/dL (3.2-5.5) L 11/20/21 05:23 Globulin 2.7 g/dL (2.1-4.2) 11/20/21 05:23 Albumin/Globulin Ratio 0.7 (1.0-2.2) L 11/20/21 05:23 Lipase 26 U/L (22-51) 11/18/21 18:20 TSH 5.19 uIU/mL (0.34-5.60) 11/19/21 04:56 Ethyl Alcohol < 5.0 mg/dL 11/18/21 18:20 SARS-CoV-2 (PCR) NOT DETECTED 11/18/21 19:55 - Procedures Procedures: Procedures REPLACE L HIP JT, FEMORAL W METAL, UNCEMENT, OPEN (09/15/15) ABX Reporting Has patient been on IV antibiotics over the past 48 hours?: No Current Medications - Current Medications Current Medications: Active Medications Acetaminophen (Acetaminophen 325 Mg Tablet) 650 mg PO Q4HR PRN PRN Reason: Pain 1 to 4, or Fever Last Admin: 11/20/21 09:06 Dose: 650 mg Sodium Chloride (Normal Saline 0.9%) 1,000 mls @ 100 mls/hr IV .Q10H [facility] Stop: 11/21/21 05:17 Last Admin: 11/20/21 10:07 Dose: 100 mls/hr Lorazepam (Lorazepam 2 Mg/Ml Vial) 1 mg IVP Q30M PRN; Protocol PRN Reason: CIWA >8 Nicotine (Nicotine 14 Mg Patch) 1 patch TOP DAILY [facility] Last Admin: 11/20/21 09:01 Dose: 1 patch Ondansetron HCl (Ondansetron 4 Mg/2 Ml Vial) 4 mg IVP Q6HR PRN PRN Reason: Nausea / Vomiting Oxycodone HCl (Oxycodone 5 Mg Tablet) 5 mg PO Q4HR PRN PRN Reason: Pain 5 to 7 Pantoprazole Sodium (Pantoprazole 40 Mg Tablet) 40 mg PO QDAC [facility] Multivit/Folic Acid/Iron ( Vitamin Tablet) 1 tab PO DAILY [facility] Last Admin: 11/20/21 09:00 Dose: 1 tab Sodium Chloride (Sodium Chloride Flush 0.9% 10 Ml Syringe) 10 ml IVP PRN PRN PRN Reason: NEEDED PER PROVIDER ORDERS Sodium Chloride (Sodium Chloride Flush 0.9% 10 Ml Syringe) 10 ml IVP 0100,0900,1700 [facility] Last Admin: 11/20/21 09:01 Dose: Not Given Thiamine HCl (Thiamine 100 Mg Tablet) 100 mg PO DAILY [facility] Last Admin: 11/20/21 09:00 Dose: 100 mg No Known Home Medications 03/02/20
[2021-11-20 10:39] LABS: ABSOLUTE RETICS # AUTO 0.04 10^6/uL (0.020-0.110); RED BLOOD COUNT 3.01 10^6/uL (4.70-6.10); RETICULOCYTE COUNT % (AUTO) 1.33 % (0.5-2.3)
[2021-11-20 11:04] LABS: FERRITIN 268.8 ng/mL (23.9-336.2)
[2021-11-20 11:23] LABS: % IRON SATURATION 15 % (20-50); IRON 21 ug/dL (45-182); TOTAL IRON BINDING CAPACITY 136 ug/dL (250-450); TRANSFERRIN 97 mg/dL (180-329)
[2021-11-20] MEDS: PANTOPRAZOLE 40 MG TABLET PO SCH (12:11)
[2021-11-20] MEDS: FERROUS GLUCONATE 324 MG TABLET PO SCH (17:06)
[2021-11-21 05:12] LABS: BASOPHILS % (AUTO) 0.4 %; EOSINOPHILS # (AUTO) 0.1 10^3/uL (0.0-0.7); EOSINOPHILS % (AUTO) 1.7 %; HCT - HEMATOCRIT 30.6 % (42.0-52.0); HGB - HEMOGLOBIN 10.4 g/dL (14.0-18.0); LYMPHOCYTES % (AUTO) 21.1 %; MEAN CORPUSCULAR HEMOGLOBIN 32.7 pg (27.0-31.0); MEAN CORPUSCULAR VOLUME 96.2 fL (80.0-94.0); MEAN PLATELET VOLUME 9.6 fL (7.4-11.4); MONOCYTES # (AUTO) 0.4 10^3/uL (0.0-1.0); MONOCYTES % (AUTO) 7.5 %; NEUTROPHILS # (AUTO) 3.3 10^3/uL (1.5-6.6); NEUTROPHILS % (AUTO) 69.1 %; PLT - PLATELET COUNT 175 10^3/uL (130-450); RED BLOOD COUNT 3.18 10^6/uL (4.70-6.10); RED CELL DISTRIBUTION WIDTH 13.1 % (12.0-15.0); WHITE BLOOD COUNT 4.8 x10^3/uL (4.8-10.8)
[2021-11-21 05:29] LABS: ALBUMIN 1.9 g/dL (3.2-5.5); ALBUMIN/GLOBULIN RATIO 0.7 (1.0-2.2); BILIRUBIN,TOTAL 0.8 mg/dL (0.2-1.0); CALCIUM 7.3 mg/dL (8.5-10.3); CREATININE 0.9 mg/dL (0.6-1.2); POTASSIUM 3.8 mmol/L (3.5-5.0); TOTAL PROTEIN 4.7 g/dL (6.7-8.2)
[2021-11-21] MEDS: PANTOPRAZOLE 40 MG TABLET PO SCH (06:36)
[2021-11-21] MEDS: NICOTINE 14 MG PATCH TOP SCH (08:42)
[2021-11-21] MEDS: SODIUM CHLORIDE FLUSH 0.9% 10 ML SYRINGE IVP SCH ×3 (08:42→23:41)
[2021-11-21] MEDS: THIAMINE 100 MG TABLET PO SCH (08:42)
[2021-11-21] MEDS: PRENATAL VITAMIN TABLET PO SCH (08:42)
[2021-11-21] MEDS: ENOXAPARIN 40 MG/0.4 ML SYRINGE SUBQ SCH (08:42)
[2021-11-21] MEDS: FERROUS GLUCONATE 324 MG TABLET PO SCH (08:42)
--- NOTE | 2021-11-21 14:05 | PROVIDER PROGRESS NOTE ---
Assessment/Plan - Problem List (1) Rhabdomyolysis Assessment/Plan: 11/21 continue improved. CK is down to 400 close to normal. pt has normal creatinine 11/20 continue improved. CK is down to 700, continue IVF, We will trend patient's creatinine kinase daily 11/19 improved, CK is down to 1100. we will continue IVF, We will trend patient's creatinine kinase daily. (2) AMY (acute kidney injury) Conclusion/Plan: 11/20 creatinine is 1, resolved. 11/19 improved, creatinine is 1.2 from 1.5, continue IVF and lab monitor (3) Elevated troponin I level Conclusion/Plan: repeat troponin is at 30, EKG does not support ischemic change (4) Alcohol abuse Conclusion/Plan: Patient has history of alcohol abuse. CIWA protocol ordered. but pt does not show alcohol withdrawal continue and B-1. (5)dementia Patient has hx of dementia. today pt is still confused, per PT report, it is likely his baseline. pt has hx of advanced dementia. pt is living alone, Consult with social work for disposition planning (6)hyponatremia 11/21 resolved Patient has hx of hyponatremia, today his Na is 128. it is likely hyponatremia hypovolmia. continue IV of NS, and lab monitor (7)fall 11/21 continue PT/OT evaluation and treatment, and fall precaution for pt. consult with social media job titles, [facility] Orell[facility] is likely taking pt on tomorrow. 11/20 continue PT/OT evaluation and treatment, consult with social media job titles for d/c planning. pt likely need replacement. pt has hx of frequent fall, and advanced dementia, and live alone. pt will have PT/OT evaluation, onsult with social work for disposition planning. pt likely need replacement. 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 Per his hx, it was likely from PAD disease. continue support for pt, Consult with social work for disposition planning - Current Meds Current Meds: Current Medications Generic Name Dose Route Start Last Admin Trade Name Freq PRN Reason Stop Dose Admin Acetaminophen 650 mg 11/18/21 19:56 11/20/21 09:06 Acetaminophen 325 Mg Tablet PO 650 mg Q4HR PRN Administration Pain 1 to 4, or Fever Enoxaparin Sodium 40 mg 11/21/21 09:00 11/21/21 08:42 Enoxaparin 40 Mg/0.4 Ml Syringe SUBQ 40 mg DAILY ADRIANA Administration Ferrous Gluconate 324 mg 11/20/21 14:00 11/21/21 08:42 Ferrous Gluconate 324 Mg Tablet PO 324 mg DAILYWM ADRIANA Administration Nicotine 1 patch 11/18/21 21:42 11/21/21 08:42 Nicotine 14 Mg Patch TOP 1 patch DAILY ADRIANA Administration Pantoprazole Sodium 40 mg 11/20/21 11:00 11/21/21 06:36 Pantoprazole 40 Mg Tablet PO 40 mg QDAC ADRIANA Administration Multivit/Folic Acid/Iron 1 tab 11/19/21 09:00 11/21/21 08:42 Vitamin Tablet PO 1 tab DAILY ADRIANA Administration Sodium Chloride 10 ml 11/19/21 01:00 11/21/21 08:42 Sodium Chloride Flush 0.9% 10 Ml Syringe IVP 10 ml 0100,0900,1700 ADRIANA Administration Thiamine HCl 100 mg 11/19/21 09:00 11/21/21 08:42 Thiamine 100 Mg Tablet PO 100 mg DAILY ADRIANA Administration - Lab Result Fish Bone Diagrams: 11/21/21 04:26 11/21/21 04:26 - Additional Planning My Orders: My Active Orders 11/20/21 14:00 Ferrous Gluconate [Fergon] 324 mg PO DAILYWM 11/21/21 09:00 Enoxaparin [Lovenox] 40 mg SUBQ DAILY 11/22/21 05:00 CMP [COMPREHENSIVE METABOLIC PANEL] [CHEM] DAILYLAB 11/23/21 05:00 CMP [COMPREHENSIVE METABOLIC PANEL] [CHEM] DAILYLAB 11/24/21 05:00 CMP [COMPREHENSIVE METABOLIC PANEL] [CHEM] DAILYLAB Subjective - Subjective Patient Reports: Resting Comfortably, No Complaints Objective Vital Signs: Vital Signs - 24 hr 11/20/21 11/20/21 11/21/21 15:26 19:00 00:49 Temperature 36.6 C 36.7 C 36.6 C Heart Rate [ 81 80 80 Brachial] Respiratory 14 14 16 Rate Blood Pressure [Right Brachial artery] Blood Pressure 112/57 L 103/75 119/57 L [Right Radial artery] O2 Saturation 97 97 92 11/21/21 11/21/21 11/21/21 06:00 07:38 11:50 Temperature 36.6 C 36.7 C 36.6 C Heart Rate [ 85 80 102 H Brachial] Respiratory 16 16 17 Rate Blood Pressure 126/58 L [Right Brachial artery] Blood Pressure 121/65 117/60 [Right Radial artery] O2 Saturation 90 L 93 95 Oxygen O2 Source Room air I&O (Last 24 Hrs): Intake and Output Totals x24h 11/19/21 11/20/21 11/21/21 23:59 23:59 23:59 Intake Total 3047.500 3764 1840 Balance 3047.500 3764 1840 General: Alert, Cooperative, No acute distress HEENT: Atraumatic Neck: Supple Lymphatic: no adenopathy Neuro: Alert, Non Focal Cardiovascular: Regular rate, Normal S1, Normal S2 Respiratory: Chest non-tender, No respiratory distress Abdomen: Normal bowel sounds, Soft Extremities: Normal pulses - Results Results: Laboratory Results WBC 4.8 x10^3/uL (4.8-10.8) 11/21/21 04:26 RBC 3.18 10^6/uL (4.70-6.10) L 11/21/21 04:26 Hgb 10.4 g/dL (14.0-18.0) L 11/21/21 04:26 Hct 30.6 % (42.0-52.0) L 11/21/21 04:26 MCV 96.2 fL (80.0-94.0) H 11/21/21 04:26 MCH 32.7 pg (27.0-31.0) H 11/21/21 04:26 MCHC 34.0 g/dL (32.0-36.0) 11/21/21 04:26 RDW 13.1 % (12.0-15.0) 11/21/21 04:26 Plt Count 175 10^3/uL (130-450) 11/21/21 04:26 MPV 9.6 fL (7.4-11.4) 11/21/21 04:26 Reticulocyte % (Auto) 1.33 % (0.5-2.3) 11/20/21 10:20 Neut # (Auto) 3.3 10^3/uL (1.5-6.6) 11/21/21 04:26 Lymph # (Auto) 1.0 10^3/uL (1.5-3.5) L 11/21/21 04:26 [place] # (Auto) 0.4 10^3/uL (0.0-1.0) 11/21/21 04:26 Eos # (Auto) 0.1 10^3/uL (0.0-0.7) 11/21/21 04:26 Baso # (Auto) 0.0 10^3/uL (0.0-0.1) 11/21/21 04: Absolute Nucleated RBC 0.00 x10^3/uL 11/21/21 04: Nucleated RBC % 0.0 /100WBC 11/21/21 04:26 Absolute Retic 0.040 10^6/uL (0.020-0.110) 11/20/21 10:20 Sodium 135 mmol/L (135-145) 11/21/21 04:26 Potassium 3.8 mmol/L (3.5-5.0) 11/21/21 04: Chloride 109 mmol/L (101-111) 11/21/21 04: Carbon Dioxide 20 mmol/L (21-32) L 11/21/21 04:26 Anion Gap 6.0 (6-13) 11/21/21 04:26 BUN 14 mg/dL (6-20) 11/21/21 04:26 Creatinine 0.9 mg/dL (0.6-1.2) 11/21/21 04:26 Estimated GFR (MDRD) 82 (>89) L 11/21/21 04:26 Glucose 95 mg/dL (70-100) 11/21/21 04: Calcium 7.3 mg/dL (8.5-10.3) L 11/21/21 04:26 Iron 21 ug/dL (45-182) L 11/20/21 10:20 TIBC 136 ug/dL (250-450) L 11/20/21 10:20 % Saturation 15 % (20-50) L 11/20/21 10:20 Transferrin 97 mg/dL (180-329) L 11/20/21 10:20 Ferritin 268.8 ng/mL (23.9-336.2) 11/20/21 10:20 Total Bilirubin 0.8 mg/dL (0.2-1.0) 11/21/21 04:26 AST 69 IU/L (10-42) H 11/21/21 04:26 ALT 42 IU/L (10-60) 11/21/21 04:26 Alkaline Phosphatase 65 IU/L (42-121) 11/21/21 04:26 Lactate Dehydrogenase 182 IU/L (91-225) 11/20/21 10:20 Total Creatine Kinase 362 IU/L (22-269) H 11/21/21 04:26 Troponin I High Sens 30.2 ng/L (2.3-19.7) H* 11/19/21 04:56 B-Natriuretic Peptide 352 pg/mL (5-100) H 11/18/21 22:17 Total Protein 4.7 g/dL (6.7-8.2) L 11/21/21 04:26 Albumin 1.9 g/dL (3.2-5.5) L 11/21/21 04:26 Globulin 2.8 g/dL (2.1-4.2) 11/21/21 04:26 Albumin/Globulin Ratio 0.7 (1.0-2.2) L 11/21/21 04:26 Lipase 26 U/L (22-51) 11/18/21 18:20 Vitamin B12 289 pg/mL (180-914) 11/20/21 10:20 TSH 5.19 uIU/mL (0.34-5.60) 11/19/21 04:56 Ethyl Alcohol < 5.0 mg/dL 11/18/21 18:20 SARS-CoV-2 (PCR) NOT DETECTED 11/18/21 19:55 - Procedures Procedures: Procedures REPLACE L HIP JT, FEMORAL W METAL, UNCEMENT, OPEN (09/15/15) ABX Reporting Has patient been on IV antibiotics over the past 48 hours?: No Current Medications - Current Medications Current Medications: Active Medications Acetaminophen (Acetaminophen 325 Mg Tablet) 650 mg PO Q4HR PRN PRN Reason: Pain 1 to 4, or Fever Last Admin: 11/20/21 09:06 Dose: 650 mg Enoxaparin Sodium (Enoxaparin 40 Mg/0.4 Ml Syringe) 40 mg SUBQ DAILY [facility] Last Admin: 11/21/21 08:42 Dose: 40 mg Ferrous Gluconate (Ferrous Gluconate 324 Mg Tablet) 324 mg PO DAILYWM [facility] Last Admin: 11/21/21 08:42 Dose: 324 mg Nicotine (Nicotine 14 Mg Patch) 1 patch TOP DAILY [facility] Last Admin: 11/21/21 08:42 Dose: 1 patch Ondansetron HCl (Ondansetron 4 Mg/2 Ml Vial) 4 mg IVP Q6HR PRN PRN Reason: Nausea / Vomiting Oxycodone HCl (Oxycodone 5 Mg Tablet) 5 mg PO Q4HR PRN PRN Reason: Pain 5 to 7 Pantoprazole Sodium (Pantoprazole 40 Mg Tablet) 40 mg PO QDAC [facility] Last Admin: 11/21/21 06:36 Dose: 40 mg Multivit/Folic Acid/Iron ( Vitamin Tablet) 1 tab PO DAILY [facility] Last Admin: 11/21/21 08:42 Dose: 1 tab Sodium Chloride (Sodium Chloride Flush 0.9% 10 Ml Syringe) 10 ml IVP PRN PRN PRN Reason: NEEDED PER PROVIDER ORDERS Sodium Chloride (Sodium Chloride Flush 0.9% 10 Ml Syringe) 10 ml IVP 0100,0900,1700 [facility] Last Admin: 11/21/21 08:42 Dose: 10 ml Thiamine HCl (Thiamine 100 Mg Tablet) 100 mg PO DAILY [facility] Last Admin: 11/21/21 08:42 Dose: 100 mg No Known Home Medications 03/02/20
--- NOTE | 2021-11-21 16:56 | Discharge Plan ---
"Discharge Plan for SNF / [facility] - Discharge Plan And Transition Orders Problem Reviewed?: Yes Disposition: 03 SNF DC/Xfer Condition: Stable Allergies and Adverse Reactions: Allergies Allergy/AdvReac Type Severity Reaction Status Date / Time No Known Drug Allergies Allergy Verified 11/18/21 18:12 Health Concerns: fall, hx of alcohol abuse, poor appetite and dehydration Plan of Treatment: pt may continue to have PT/OT evaluation and treatment in SNF and prevention of fall. pt is prescribed and vitamin B1 for his hx of alcohol abuse treatment. Pt may have conductor/brakeman consult for his poor appetite and keep pt hydration at SNF. Care Goals: Stabilization and improvement - SNF / [facility]ITENTI[facility] Transition Orders Admit to (Facility): [facility] Under the care of (Name): Medical provider of [facility] Discharge Diagnosis: fall, Rhabdomyolysis, AMY and dehydration, hx of alcohol abuse, hyponatremia, BKA Medicare Certification Statement: I certify that [facility] alf care is medically necessary on a continuing basis for any of the conditions for which she/he is receiving care during hospitalization. Notify PCP of admission and forward orders to primary provider for signature. Weight on admission and: Weekly Call PCP immediately if weight increases by: 2 kg Other Notification Orders: Call PCP immediately if patient develops dyspnea, chest pain/tightness or edema. House Bowel Program: Yes Additional Bowel Program Orders: If no BM after 2 days, nurse may give M.O.M. 30ml PO PRN and/or ducolax Supp 1 [place] and/or GURMEET 250mg P.O., and/or senna 1-2 tabs PO. On day 3 nurse may give repeat above order until residents constipation is resolved. Annual Influenza Vaccine (between Mar 27 and October 24): Yes Two-step PPD per [facility] [phone] or approved exception documents: Yes Treatments & Other Orders: pt may continue to have PT/OT evaluation and treatment in SNF and prevention of fall. pt is prescribed and vitamin B1 for his hx of alcohol abuse treatment. Pt may have conductor/brakeman consult for his poor appetite and keep pt hydration at SNF. Medication Orders: PLEASE REFER TO THE DISCHARGE MEDICATION LIST. Insulin Orders?: No - Medications New Prescriptions: Ferrous Gluconate [Fergon] 324 mg PO DAILYWM #30 tablet Pnv No.95/Ferrous Fum/Folic AC [ Tablet] 1 each PO DAILY #30 tablet Thiamine [Vitamin B-1] 100 mg PO DAILY #30 tablet - Diet Type: Geriatric Texture: Regular Liquids: Thin May have monthly special meal: Yes - Therapies | Activity Therapy: Evaluation | Treat if indicated: PT, OT Rehabilitation Potential: Maximize functional status Activity: Activity as Tolerated"
[2021-11-22 05:28] LABS: BASOPHILS % (AUTO) 0.4 %; EOSINOPHILS # (AUTO) 0.1 10^3/uL (0.0-0.7); HCT - HEMATOCRIT 30.7 % (42.0-52.0); HGB - HEMOGLOBIN 10.8 g/dL (14.0-18.0); LYMPHOCYTES # (AUTO) 1.1 10^3/uL (1.5-3.5); LYMPHOCYTES % (AUTO) 23.3 %; MEAN CORPUSCULAR HEMOGLOBIN 33.6 pg (27.0-31.0); MEAN CORPUSCULAR HGB CONC 35.2 g/dL (32.0-36.0); MEAN CORPUSCULAR VOLUME 95.6 fL (80.0-94.0); MEAN PLATELET VOLUME 9.6 fL (7.4-11.4); MONOCYTES # (AUTO) 0.5 10^3/uL (0.0-1.0); MONOCYTES % (AUTO) 10.1 %; NEUTROPHILS % (AUTO) 62.8 %; PLT - PLATELET COUNT 193 10^3/uL (130-450); RED BLOOD COUNT 3.21 10^6/uL (4.70-6.10); WHITE BLOOD COUNT 4.7 x10^3/uL (4.8-10.8)
[2021-11-22 05:41] LABS: ALBUMIN 2.1 g/dL (3.2-5.5); ALBUMIN/GLOBULIN RATIO 0.7 (1.0-2.2); CALCIUM 7.7 mg/dL (8.5-10.3); CREATININE 0.9 mg/dL (0.6-1.2)
[2021-11-22] MEDS: PANTOPRAZOLE 40 MG TABLET PO SCH (06:06)
[2021-11-22] MEDS: THIAMINE 100 MG TABLET PO SCH (08:18)
[2021-11-22] MEDS: PRENATAL VITAMIN TABLET PO SCH (08:18)
[2021-11-22] MEDS: NICOTINE 14 MG PATCH TOP SCH (08:18)
[2021-11-22] MEDS: FERROUS GLUCONATE 324 MG TABLET PO SCH (08:18)
[2021-11-22] MEDS: ENOXAPARIN 40 MG/0.4 ML SYRINGE SUBQ SCH (08:22)
[2021-11-22 10:13] LABS: CORONAVIRUS 229E-RESP PCR NOT DETECTED; CORONAVIRUS HKU1-RESP PCR NOT DETECTED; CORONAVIRUS NL63-RESP PCR NOT DETECTED; CORONAVIRUS OC43-RESP PCR NOT DETECTED; HUMAN METAPNEUMOVIRUS NOT DETECTED; INFLUENZA A- RESP PCR PANEL NOT DETECTED; RHINOVIRUS/ENTEROVIRUS NOT DETECTED; SARS-CoV-2 -RESP PCR PANEL NOT DETECTED
[2021-11-22 10:14] LABS: B. PARAPERTUSSIS- RESP PCR PAN NOT DETECTED; B. PERTUSSIS- RESP PCR PANEL NOT DETECTED; C. PNEUMONIAE- RESP PCR PANEL NOT DETECTED; INFLUENZA B - RESP PCR PANEL NOT DETECTED; M. PNEUMONIAE- RESP PCR PANEL NOT DETECTED; PARAINFLUENZA VIRUS 1 NOT DETECTED; PARAINFLUENZA VIRUS 2 NOT DETECTED; PARAINFLUENZA VIRUS 3 NOT DETECTED; PARAINFLUENZA VIRUS 4 NOT DETECTED; RSV- RESP PCR PANEL NOT DETECTED
--- NOTE | 2021-11-22 11:20 | DISCHARGE SUMMARY ---
"Discharge Summary Admit Date: 11/18/21 Discharge Date: 11/22/21 Discharging Provider: Lita Gauthier MD Primary Care Provider: Anna Quigley MD Code Status: Attempt Resuscitation Condition at Discharge: Fair Discharge Disposition: 03 SNF DC/Xfer Discharge Facility Name: [facility] - DIAGNOSES Discharge Diagnoses with Status of Each Condition: 1. Rhabdomyolysis, Resolved 2. Acute kidney injury, Resolved 3. Elevated troponin level,, Resolved 4. History of alcohol abuse 5. Dementia without behavioral disturbance 6. Multiple falls at home 7. Hyponatremia, Resolved 8. Atrial fibrillation 9. Hx of BKA - HPI History of Present Illness: Patient's history is limited due to dementia. According to the ED providers HPI, the patient was brought to the ED by EMS for multiple falls at home. He reported falling out of his wheelchair twice today. It was unwitnessed both times. He was too weak to get back up in the chair. He denies any significant complaints. He has extensive skin tears and bruising. Attempting range of motion pretty significant pain. Work-up in the ED included creatinine kinase level which was at 2654. He was presented for admission for continued treatment of potential rhabdomyolysis. - Past Medical History Cardiovascular: reports: Peripheral Vascular Disease, Deep vein thrombosis Respiratory: reports: None Endocrine/Autoimmune: reports: None GI: reports: None : reports: None HEENT: reports: None Psych: reports: Anxiety Musculoskeletal: reports: Other Derm: reports: None MRSA Hx?: No - Past Surgical History General: reports: Appendectomy Ortho: reports: Hip replacement, Other (left BKA) - CONSULTS | PROCEDURES Procedures: 1. Chest x-ray was without acute cardiopulmonary abnormality. 2. Head CT had no acute intracranial abnormality and chronic microvascular ischemic changes. 3. Cervical spine CT with no acute osseous abnormality. 4. Hips 3 views bilateral had left hip arthroplasty, no visible fracture or dislocation, heavy arteriosclerotic disease seen in aorta. 5. Shoulder 3 views bilateral had no acute fracture or dislocation. Mild to severe bilateral degeneration, right worse than left. - HOSPITAL COURSE Hospital Course: He was treated with IV fluids and his CPK gradually came down. Acute kidney i njury improved and was 1.0 by the time of discharge. Repeat troponins were negative. He has a history of alcohol abuse and we did put him on CIWA protocol but he did not need it. With his dementia he continue to be confused, but most likely at his baseline according to physical therapy who had met this gentleman before. Hyponatremia also resolved. It is unclear why he fell in his residence. But he was seen by physical therapy and felt to be stable to Be [facility] with physical therapy To continue. He was discharged to his penitentiary facility where it is hoped that he will get enough strength to return to his home where he lives. His son who is [employer] SET UP OPERATOR TOOL contributed to disposition status. He has a guardian that manages his finances. A caregiver that prepares his meals for the day on a daily basis. He requires increasing assistance to complete wheelchair level transfers. He did practice with this. He requires minimum assist. He does need help with donning his prosthetic and required help. He has difficulty managing his left lower extremity with his prosthesis. Also complains of pain and discomfort around the stump with the prosthesis on. At discharge temperature is 36.9. Pulse was suddenly elevated at 101 but came back down on recheck. Nursing did not document that it was in the 70s. Blood pressure 128/68. Respirations 22. 97% on room air. He is an elderly gentleman that is confused, very forgetful. He knows that he is in the hospital and he knows why he is here. Neck is supple. He does not have any increased respiratory effort. Lungs are clear. Regular rate and rhythm. Abdomen is benign. He has his amputation below the knee and prosthetic is in place. The stump is clean, closed. Greater than 30 minutes was spent coordinating discharge. - ALLERGIES Allergies/Adverse Reactions: Allergies Allergy/AdvReac Type Severity Reaction Status Date / Time No Known Drug Allergies Allergy Verified 11/18/21 18:12 - MEDICATIONS Home Medications: Ambulatory Orders Medication Instructions Recorded Confirmed Ferrous Gluconate [Fergon] 324 mg PO DAILYWM #30 tablet 11/21/21 Pnv No.95/Ferrous Fum/Folic AC 1 each PO DAILY #30 tablet 11/21/21 [ Tablet] Thiamine [Vitamin B-1] 100 mg PO DAILY #30 tablet 11/21/21 - LABS Result Diagrams: 11/22/21 05:05 11/22/21 05:05"
[2021-11-22 12:34] VITALS: BP 128/68
== END 2021-11-22 11:20 | DRG 558 ==
LOC: EDUNIT# → ED 17:54 → MS2 19:56
PROVIDERS: ADMIT Internal Medicine; ATTEND Specialist
DX: M62.82 Rhabdomyolysis (principal); R79.89 Other specified abnormal findings of blood chemistry; N17.9 Acute kidney failure, unspecified; E87.1 Hypo-osmolality and hyponatremia; Z20.822 Contact with and (suspected) exposure to COVID-19; R77.8 Other specified abnormalities of plasma proteins; F17.200 Nicotine dependence, unspecified, uncomplicated; S51.811A Laceration without foreign body of right forearm, initial encounter; F03.90 Unspecified dementia, unspecified severity, without behavioral disturbance, psychotic disturbance, mood disturbance, and anxiety; E86.0 Dehydration; Y92.9 Unspecified place or not applicable; R53.1 Weakness; R00.0 Tachycardia, unspecified; I48.91 Unspecified atrial fibrillation; F10.11 Alcohol abuse, in remission; F17.210 Nicotine dependence, cigarettes, uncomplicated; S41.112A Laceration without foreign body of left upper arm, initial encounter; W05.0XXA Fall from non-moving wheelchair, initial encounter; I73.9 Peripheral vascular disease, unspecified; F41.9 Anxiety disorder, unspecified; Y92.009 Unspecified place in unspecified non-institutional (private) residence as the place of occurrence of the external cause; Z91.81 History of falling; Z89.512 Acquired absence of left leg below knee; Z99.3 Dependence on wheelchair
CPT/HCPCS: 36415; 70450; 71045; 72125; 73030; 73522; 80048; 80053; 82550; 82607; 82728; 83540; 83615; 83690; 83880; 84443; 84466; 84484; 85025; 85045; 87633; 87635; 93005; 97140; 97162; 97166; 97530; 99281; 99285; A9270; G0480; J1650; 80320

== ENCOUNTER 2021-11-22 13:28 | Outpatient (CLI) | payer MEDICARE, OTHER | END 2021-11-22 13:29 | disposition home or self-care (01) | LOC: EMS 13:28 | PROVIDERS: ATTEND Specialist | DX: M62.82 Rhabdomyolysis (principal); Z74.01 Bed confinement status | CPT/HCPCS: A0425; A0428 ==

== ENCOUNTER 2021-11-27 08:00 | Outpatient (CLI) | payer MEDICARE, OTHER ==
[2021-11-27 16:36] LABS: CALCIUM 8.5 mg/dL (8.5-10.3); POTASSIUM 3.5 mmol/L (3.5-5.0)
== END 2021-11-30 17:45 | disposition home or self-care (01) ==
LOC: LAB.R 08:00
PROVIDERS: ATTEND Hospitalist
DX: E87.1 Hypo-osmolality and hyponatremia (principal)
CPT/HCPCS: 80048

== ENCOUNTER 2021-11-29 08:00 | Outpatient (CLI) | payer MEDICARE, OTHER | END 2021-11-29 23:59 | disposition home or self-care (01) | LOC: LAB 08:00 | PROVIDERS: ATTEND Hospitalist | DX: R89.5 Abnormal microbiological findings in specimens from other organs, systems and tissues (principal) | CPT/HCPCS: 87070; 87077; 87181; 87205 ==

== ENCOUNTER 2022-01-24 10:09 | Outpatient (CLI) | payer MEDICARE, OTHER ==
--- NOTE | 2022-01-24 13:57 | Ultrasound Report ---
PROCEDURE: Ankle Brachial Index INDICATIONS: PVD TECHNIQUE: Ankle-brachial indices were obtained of the right lower extremity and recorded. COMPARISONS: None. FINDINGS: Right brachial: 97/57 Right ankle 100/52 Right ankle brachial index (NICHOLE): 1.0 Healing potential: Ankle pressures >55 mm Hg in non-diabetics and >80 mm Hg in diabetics are likely to achieve primary h ealing of ischemic foot ulcers. Toe pressures >30 mm Hg are likely to achieve primary healing of ischemic foot ulcers, toe or transme tatarsal amputations. IMPRESSION: Normal right NICHOLE. Reviewed by: George Handley on 01/24/2022 1:55 PM PDT Approved by: George Handley on 01/24/2022 1:55 PM PDT Station ID: [id number]
--- NOTE | 2022-01-24 17:16 | Ultrasound Report ---
PROCEDURE: Duplex Lwr Ext Arterial RT INDICATIONS: PVD TECHNIQUE: Color and pulse Doppler interrogation was performed of the right lower extremity arterial system, wit h image documentation. COMPARISON: None FINDINGS: Common femoral artery: 135 cm/sec, with triphasic flow. Deep femoral artery: 86 cm/sec, with biphasic flow. Proximal superficial femoral artery: 73 cm/sec, with triphasic flow. Mid superficial femoral artery: 70 cm/sec, with triphasic flow. Distal superficial femoral artery: 89 cm/sec, with triphasic flow. Popliteal artery: 55 cm/sec, with triphasic flow. Posterior tibial artery: 56 cm/sec, with triphasic flow. Anterior tibial artery/dorsalis pedis: 66 cm/sec, with triphasic flow. Clemens-scale imaging description: Severe diffuse plaque IMPRESSION: No evidence of arterial insufficiency to the right lower extremity. Reviewed by: Sincere Clark MD on 01/24/2022 4:14 PM MEG Approved by: Sincere Clark MD on 01/24/2022 4:14 PM MEG Station ID: [id number]
== END 2022-01-24 10:10 | disposition home or self-care (01) ==
LOC: DI 10:09
PROVIDERS: ATTEND Registered Nurse
DX: I73.9 Peripheral vascular disease, unspecified (principal); L97.511 Non-pressure chronic ulcer of other part of right foot limited to breakdown of skin
CPT/HCPCS: 93922